=== PATIENT | female | born 1965 | race Caucasian/White ===

== ENCOUNTER 2016-11-20 10:50 | Day surgery (SDC) | payer OTHER ==
[~2016-11-20] VITALS: Ht 160 cm; Wt 78.7 kg
[~2016-11-20 10:50] MED LIST: ACHYD1T PO; ASPI325T32 PO; ATOR80TA76 PO; CLOP75TA28 PO; DAPA5TAB PO; HYDR-34 PO; HYDROCODONE; HYOS0.1216 PO; INSU100V5 SQ; METO-333 PO; NITR100C3 PO; PANT40TA2 PO; PHEN100T26 PO; SAXA2.5T PO; TRAM-21 PO
[2016-11-20] MEDS ORDERED: ASPIRIN 81 MG CHEW (CHILDREN'S ASA) PO ONE (11:00)
[2016-11-20] MEDS ORDERED: RX-NITROGLYCERIN 0.4 MG TAB BTL 25'S SL ONE (11:00)
--- NOTE | 2016-11-20 11:02 | ED Chest Pain ---
General Chief Complaint: Chest Pain Stated Complaint: CHEST TIGHTNESS/BACK PAIN Source: patient Exam Limitations: no limitations History of Present Illness Time seen by provider: 10:59 Initial Comments To ER with reports of central chest tightness that radiates through to her back. She does have associated nausea and pain with breathing. She is a former smoker but quit after a 20+ pack-year history in March 2016. She presented here with similar symptoms on October 182015 and diagnosed with N STEMI. Cardiac catheterization by Dr. Ibarra showed totally occluded mid right coronary artery which was treated with drug-eluting stent. Her pain has been present since 730 this morning. She was already awake and at work at that time. 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 She is employed at [employer]. Timing/Duration: 4-6 hours Severity/Quality: moderate, tightness Location: central, back Radiation: no radiation Activities at Onset: none ASA po SAP BI ARCHITECT: No NTG SL SAP BI ARCHITECT: No Associated Symptoms: nausea/vomiting Allergies and Home Medications Allergies Coded Allergies: codeine (Verified Allergy, Unknown, 12/19/07) Home Medications Aspirin 325 Mg Tablet. #30 325 MG PO DAILY Prescribed by: KELSEY BLANCO on 10/20/16 1404 Atorvastatin Calcium 80 Mg Tablet #30 80 MG PO HS Prescribed by: KELSEY BLANCO on 10/20/16 1404 Clopidogrel Bisulfate 75 Mg Tablet #30 75 MG PO DAILY Prescribed by: KELSEY BLANCO on 10/20/16 1404 Insulin Determir 1,000 Units/10 Ml Soln #5 25 UNIT SQ DAILY@2100 Prescribed by: KELSEY BLANCO on 10/20/16 1404 Metoprolol Tartrate 25 Mg Tablet #60 25 MG PO BID Prescribed by: KELSEY BLANCO on 10/20/16 1404 Review of Systems Constitutional: see HPI EENTM: No Symptoms Reported Respiratory: See HPIDenies Cough, Denies Orthopnea, Other (pleurodynia) Cardiovascular: See HPI Chest PainDenies Edema, Denies Irregular Heart Rate, Denies Palpitations, Denies Syncope Gastrointestinal: No Symptoms Reported Genitourinary: No Symptoms Reported Musculoskeletal: no symptoms reported Skin: no symptoms reported Psychiatric/Neurological: No Symptoms Reported Endocrine: No Symptoms Reported Hematologic/Lymphatic: No Symptoms Reported Past Bksagwa-Bcgpek-Qcpqby Hx Patient Social History Type Used: Cigarettes Recent Hopitalizations: Yes (HYSTERECTOMY 1996, BREAST SURG, TONSILECTOMY) Immunizations Up To Date Tetanus Booster (TDap): Less than 5yrs Date of Influenza Vaccine: Jul 21, 2012 Seasonal Allergies Seasonal Allergies: Yes Surgeries HX Surgeries: Yes (right plugged milk duct debridement) Respiratory Hx Respiratory Disorders: No Cardiovascular Hx Cardiac Disorders: No Neurological Hx Neurological Disorders: No Reproductive System Hx Reproductive Disorders: No Sexually Transmitted Disease: No Genitourinary Hx Genitourinary Disorders: No Gastrointestinal Hx Gastrointestinal Disorders: Yes (4 YEARS AGO SURGERY "TO MAKE IT SO THAT I CAN'T VOMIT") Musculoskeletal Hx Musculoskeletal Disorders: No Endocrine Hx Endocrine Disorders: Yes Endocrine Disorders: Diabetes, Insulin dep HEENT HX ENT Disorders: No Psychosocial Hx Psychiatric Problems: No Integumentary HX Skin/Integumentary Disorder: No Blood Transfusions Hx Blood Disorders: No Family Medical History Family Medial History: Hypertension 19 FATHER Physical Exam Vital Signs Vital Sign - Last 12Hours 11/20/16 11:34 Temp 98.2 Capillary Refill : General Appearance: No Apparent Distress WD/WN Anxious HEENT: PERRL/EOMI TMs Normal Neck: Full Range of Motion Normal Inspection Respiratory: Chest Non Tender Lungs Clear No Accessory Muscle Use Cardiovascular: Regular Rate, Rhythm Normal Peripheral Pulses Gastrointestinal: Normal Bowel Sounds Non Tender Soft Extremity: Normal Capillary Refill Neurologic/Psychiatric: Alert Oriented x3 No Motor/Sensory Deficits Skin: Normal Color Warm/Dry Progress/Results/Core Measures Results/Orders Lab Results Laboratory Tests Test 11/20/16 11:10 Range/Units Activated Partial Thromboplast Time 34 24-35 SEC Alanine Aminotransferase (ALT/SGPT) 33 0-55 U/L Albumin 4.0 3.2-4.5 G/DL Alkaline Phosphatase 130 40-136 U/L Anion Gap 10 5-14 MMOL/L Aspartate Amino Transf (AST/SGOT) 23 5-34 U/L BUN/Creatinine Ratio 16 Basophils # (Auto) 0.0 0.0-0.1 10^3/uL Basophils (%) (Auto) 0 0-10 % Blood Urea Nitrogen 13 7-18 MG/DL Calcium Level 8.7 8.5-10.1 MG/DL Carbon Dioxide Level 23 21-32 MMOL/L Chloride Level 104 98-107 MMOL/L Creatinine 0.80 0.60-1.30 MG/DL Eosinophils # (Auto) 0.2 0.0-0.3 10^3/uL Eosinophils (%) (Auto) 2 0-10 % Estimat Glomerular Filtration Rate > 60 Glucose Level 383 H 70-105 MG/DL Hematocrit 43 35-52 % Hemoglobin 14.6 11.5-16.0 G/DL INR Comment 1.0 0.8-1.4 Lymphocytes # (Auto) 2.6 1.0-4.0 X 10^3 Lymphocytes (%) (Auto) 24 12-44 % Magnesium Level 1.8 1.8-2.4 MG/DL Mean Corpuscular Hemoglobin 32 25-34 PG Mean Corpuscular Hemoglobin Concent 34 32-36 G/DL Mean Corpuscular Volume 95 80-99 FL Mean Platelet Volume 11.2 H 7.4-10.4 FL Monocytes # (Auto) 0.5 0.0-1.0 X 10^3 Monocytes (%) (Auto) 4 0-12 % Myoglobin 22.6 10.0-92.0 NG/ML Neutrophils # (Auto) 7.7 1.8-7.8 X 10^3 Neutrophils (%) (Auto) 70 42-75 % Platelet Count 262 130-400 10^3/uL Potassium Level 4.2 3.6-5.0 MMOL/L Prothrombin Time 13.3 12.2-14.7 SEC Red Blood Count 4.55 4.35-5.85 10^6/uL Red Cell Distribution Width 13.1 10.0-14.5 % Sodium Level 137 135-145 MMOL/L Total Bilirubin 0.5 0.1-1.0 MG/DL Total Protein 6.8 6.4-8.2 G/DL Troponin I < 0.30 <0.30 NG/ML White Blood Count 10.9 4.3-11.0 10^3/uL My Orders Orders-MAI WATSON LAUNDRY RO[employer] ATTENDANT Cbc With Automated Diff (11/20/16 10:54) Magnesium (11/20/16 10:54) Chest 1 View, Ap/Pa Only (11/20/16 10:54) Ekg Tracing (11/20/16 10:54) Cardiac Profile 1 (11/20/16 10:54) Comprehensive Metabolic Panel (11/20/16 10:54) Myoglobin Serum (11/20/16 10:54) Protime With Inr (11/20/16 10:54) Partial Thromboplastin Time (11/20/16 10:54) O2 (11/20/16 10:54) Monitor-Rhythm Ecg Trace Only (11/20/16 10:54) Lipid Panel (11/21/16 06:00) Aspirin Chewable Tablet (Baby Aspirin Ch (11/20/16 11:00) Rx-Nitroglycerin Sl Tabs (Rx-Nitrostat S (11/20/16 11:00) Saline Lock/Iv-Start (11/20/16 10:54) Ticagrelor Tablet (Brilinta Tablet) (11/20/16 12:00) Insulin (Regular) Human (Humulin R (Per (11/20/16 12:00) Medications Given in ED Current Medications Medications Dose Ordered Sig/Ella Route Start Time Stop Time Status Last Admin Dose Admin Aspirin 324 mg ONCE ONCE PO 11/20/16 11:00 11/20/16 11:01 DC 11/20/16 11:34 324 MG Nitroglycerin 0.4 mg UD ONCE SL 11/20/16 11:00 11/20/16 11:01 DC 11/20/16 11:35 0.4 MG Vital Signs/I&O Vital Sign - Last 12Hours 11/20/16 11:34 Temp 98.2 Diagnostic Imaging Diagonstic Imaging: Xray Comments NAME: BARBARA CHOUDHARY [facility] REC#: [id number] PT STATUS: REG ER : 1965 PHYSICIAN: MAI WATSON APRN ADMIT DATE: 11/20/16/ER Draft Date of Exam:11/20/16 CHEST 1 VIEW, AP/PA ONLY INDICATION: Chest pain. EXAMINATION: Portable chest at 11:28 AM. FINDINGS: The heart size and pulmonary vascularity are normal. The lungs are clear. There are no effusions or pneumothoraces. IMPRESSION: Negative chest. Dictated on workstation # [id number] Dict: 11/20/16 1134 Trans: 11/20/16 1146 [id number] Interpreted by: LAWRENCE CRESPO Electronically signed by: Departure Communication Time/Spoke to Admitting Phy: 11:[address] Hale agrees to admit with cardiology consult Time/Spoke to Consulting Physi: 11:56 Communication/Consulting Dr. Ibarra agrees to consult. Progress Notes 1144-Chest pain improved from a 7 out of 10-3 out of 10 after 1 sublingual nitroglycerin. Given that the tightness was still persistently second sublingual nitroglycerin glycerin was given. Blood pressure remains adequate. Troponin still not back. I did discuss with Dr. Ibarra recommends admission he will consult. Impression Impression: Primary Impression: Chest pain Qualified Code: R07.9 - Chest pain, unspecified Disposition: ADMITTED INPATIENT Condition: Stable Decision to Admit Reason: Admit from ER (General) Decision to Admit/Date: Nov 20, 2016 Time/Decision to Admit Time: 11:56 Departure-Patient Inst. Referrals: AMADO HALE DO (PCP/Family) Primary Care Physician MAI WATSON APRN Nov 20, 2016 11:02
[2016-11-20 11:18] LABS: BASOPHILS % (AUTO) 0 % (0-10); EOSINOPHILS # (AUTO) 0.2 10^3/uL (0.0-0.3); EOSINOPHILS % (AUTO) 2 % (0-10); LYMPHOCYTES # (AUTO) 2.6 X 10^3 (1.0-4.0); LYMPHOCYTES % (AUTO) 24 % (12-44); MEAN CORPUSCULAR HEMOGLOBIN 32 PG (25-34); MEAN CORPUSCULAR HGB CONC 34 G/DL (32-36); MEAN CORPUSCULAR VOLUME 95 FL (80-99); MEAN PLATELET VOLUME 11.2 FL (7.4-10.4); MONOCYTES # (AUTO) 0.5 X 10^3 (0.0-1.0); MONOCYTES % (AUTO) 4 % (0-12); NEUTROPHILS # (AUTO) 7.7 X 10^3 (1.8-7.8); NEUTROPHILS % (AUTO) 70 % (42-75); PLATELET COUNT 262 10^3/uL (130-400); RED BLOOD COUNT 4.55 10^6/uL (4.35-5.85); RED CELL DISTRIBUTION WIDTH 13.1 % (10.0-14.5); WHITE BLOOD COUNT 10.9 10^3/uL (4.3-11.0)
[2016-11-20 11:36] LABS: PROTHROMBIN TIME PATIENT 13.3 SEC (12.2-14.7)
[2016-11-20 11:45] LABS: ALANINE AMINOTRANSFERASE 33 U/L (0-55); ANION GAP 10 MMOL/L (5-14); ASPARTATE AMINO TRANSFERASE 23 U/L (5-34); BILIRUBIN,TOTAL 0.5 MG/DL (0.1-1.0); BLOOD UREA NITROGEN 13 MG/DL (7-18); BUN/CREATININE RATIO 16; CALCIUM 8.7 MG/DL (8.5-10.1); CARBON DIOXIDE 23 MMOL/L (21-32); CHLORIDE 104 MMOL/L (98-107); GFR ESTIMATED > 60; GLUCOSE 383 MG/DL (70-105); MAGNESIUM 1.8 MG/DL (1.8-2.4); POTASSIUM 4.2 MMOL/L (3.6-5.0); SODIUM 137 MMOL/L (135-145); TOTAL PROTEIN 6.8 G/DL (6.4-8.2)
--- NOTE | 2016-11-20 11:47 | Diagnostic Imaging Report ---
INDICATION: Chest pain. EXAMINATION: Portable chest at 11:28 AM. FINDINGS: The heart size and pulmonary vascularity are normal. The lungs are clear. There are no effusions or pneumothoraces. IMPRESSION: Negative chest. Dictated by: Dictated on workstation # [id number]
[2016-11-20 11:54] LABS: MYOGLOBIN SERUM 22.6 NG/ML (10.0-92.0)
[2016-11-20] MEDS ORDERED: TICAGRELOR 90 MG TABLET (BRILINTA) PO ONE (12:00)
[2016-11-20] MEDS ORDERED: inSUlin (REGULAR) HUMAN 1 UNIT/0.01 ML (CHARGE PER UNIT) SC ONE (12:00)
[2016-11-20] MEDS ORDERED: NITROGLYCERIN SUBLINGUAL 0.4 MG TAB (NITROSTAT) SL PRN (14:15)
[2016-11-20] MEDS ORDERED: CATHETER FLUSH 10 ML SYR IV PRN (14:15)
--- NOTE | 2016-11-20 14:40 | Consultation-Cardiology ---
HPI-Cardiology Cardiology Consultation: Date of Consultation 11/20/16 Date of Admission Attending Physician Carmelina Hale DO Admitting Physician Carmelina Hale DO Consulting Physician Tan IBARRA MD HPI: Chief Complaint: chest pain this is a 51-year-old lady with history of active smoking and diabetes. She quit smoking in April 2016. She presented and of September last year with non- STEMI and was found to have occluded mid RCA treated successfully with a drug- eluting stent. She was discharged on aspirin and Plavix. She presents again today with complain of chest tightness since 730 in the morning. Initial chest tightness was 7/10 with relief with nitroglycerin. She also complained of radiation to the side of the chest. She denied having any heartburn. She says it's similar to her previous symptoms during the non-STEMI but not as severe. Patient denies any shortness of breath, palpitation, syncope or near syncope. Patient was compliant with Plavix. Review of Systems-Cardiology Review of Systems Constitutional: No As described under HPI, No no symptoms reported, No chills, No fever, No lightheadedness, No malaise, No tiredness, No weight loss, No weight gain, No other Eyes: No As described under HPI, No no symptoms reported, No blindness, No blurred vision, No contact lenses, No drainage, No decreased acuity, No foreign body sensation, No glasses, No inflammation, No pain, No photophobia, No previous injury, No shadows, No tunnel vision, No other, No vision change Ears/Nose/Throat: No As described under HPI, No no symptoms reported, No chronic hearing loss, No epistaxis, No ear discharge, No ear pain, No loose teeth, No mouth pain, No mouth swelling, No nasal drainage, No nose pain, No recent hearing loss, No throat pain, No throat swelling, No ulcerations, No other Respiratory: No no symptoms reported, No As described under HPI, No cough, No orthopnea, No shortness of breath, No SOB with excertion, No SOB at rest, No stridor, No wheezing, No other Cardiovascular: No no symptoms reported, No As described under HPI, chest painNo edema, No irregular heart rate, No lightheadedness, No palpitations, No syncope, No other Gastrointestinal: No no symptoms reported, No As described under HPI, No abdomen distended, No abdominal pain, No blood streaked bowels, No constipation , No diarrhea, No difficulty swallowing, No nausea, No poor appetite, No poor fluid intake, No rectal bleeding, No vomiting, No other, No nausea/vomiting/ diarrhea, No stool coloration changes Genitourinary: No no symptoms reported, No As described under HPI, No burning, No dysuria, No discharge, No frequency, No flank pain, No hematuria, No incontinence, No pain, No urgency, No other, No urine frequency changes, No urine coloration changes Musculoskeletal: No no symptoms reported, No As describe under HPI, No back pain, No gout, No joint pain, No joint swelling, No muscle pain, No muscle stiffness, No neck pain, No other Skin: No no symptoms reported, No As described under HPI, No change in color, No change in hair/nails, No dryness, No lesions, No lumps, No rash, No other, No skin related problems, No ulcerations, No rash on exposed areas, No ulcerations on exposed areas Psychiatric/Neurological: No As described under HPI, No anxiety, No depression , No emotional problems, No focal weakness, No headache, No no symptoms reported , No numbness, No other, No pre-existing deficit, No seizure, No syncope, No tingling, No tremors, No weakness BHM-Lvedmh-Njdjhy Hx Patient Social History Alcohol Use: Denies Use Recreational Drug Use: No Smoking Status: Former Smoker Type Used: Cigarettes Recent Foreign Travel: No Recent Infectious Disease Expo: No Hospitalization with Isolation: Denies Physical Abuse Screen: No Sexual Abuse: No Immunizations Up To Date Tetanus Booster (TDap): Less than 5yrs Date of Influenza Vaccine: Oct 18, 2016 Past Medical History PMH As described under Assessment. Family Medical History Family History: Hypertension 19 FATHER Allergies and Home Medications Allergies Coded Allergies: codeine (Verified Allergy, Unknown, 12/19/07) Home Medications Aspirin 325 Mg Tablet. #30 325 MG PO DAILY Prescribed by: KELSEY BLANCO on 10/20/16 1404 Atorvastatin Calcium 80 Mg Tablet #30 80 MG PO HS Prescribed by: KELSEY BLANCO on 10/20/16 1404 Clopidogrel Bisulfate 75 Mg Tablet #30 75 MG PO DAILY Prescribed by: KELSEY BLANCO on 10/20/16 1404 Insulin Determir 1,000 Units/10 Ml Soln #5 25 UNIT SQ DAILY@2100 Prescribed by: KELSEY BLANCO on 10/20/16 140 Metoprolol Tartrate 25 Mg Tablet #60 25 MG PO BID Prescribed by: KELSEY BLANCO on 10/20/16 1404 Physical Exam-Cardiology Physical Exam Vital Signs/I&O Vital Sign - Last 12Hours 11/20/16 11/20/16 11/20/16 11/20/16 10:50 11:34 12:36 13:28 Temp 97.5 98.2 98.2 Pulse 90 72 Resp 16 B/P O2 Delivery Room Air Capillary Refill : Less Than 3 Seconds Constitutional: No appears stated age, No AAO x 3, No apparent distress, No PERRL, No well-developed, No well-nourished, No other HEENT: No PERRL, No normal ENT inspection, No TMs normal, No pharynx normal, No scleral icterus (R), No scleral icterus (L), No pale conjunctivae (R), No pale conjunctivae (L), No photophobia, No TM abnormal (R), No TM abnormal (L), No pharyngeal erythema, No tonsillar exudate, No other, No discharge, No EOMI, No hearing is well preserved, No hard of hearing, No oral hygience is good, No ulceration, No xanthelasmas are seen Neck: No non-tender, No full range of motion, No supple, No normal inspection, No carotid bruit, No limited range of motion, No lymphadenopathy (R), No lymphadenopathy (L), No tender lateral, No tender midline, No thyromegaly, No other, No carotid pulses are 2 + bilaterally, No with good upstrokes Respiratory: No accessory muscle use, No respiratory distress, No chest tender , No chest expansion is symmetric, No chest is bilaterally symmetric, No lungs clear to percussion, No lungs clear to auscultation, No crackles, No rhonchi, No rales, No stridor, No wheezing, No pleural rub, No other Cardiovascular: No regular rate-rhythm, No irregularly irregular, No extra beats, No parasternal heave is noted, No JVD, No edema, No bradycardia, No tachycardia, No point of maximal impulse, No cardiac thrills are palpable, No S1 and S2, No gallop/S3, No gallop/S4, No diastolic murmur, No systolic murmur, No friction rub, No click, No other Gastrointestinal: No tender, No soft, No round, No distended, No pulsatile mass , No organomegaly, No guarding, No rebound, No tenderness, No hernia, No mass, No audible bowel sounds, No abnormal bowel sounds, No abdominal bruits, No spleenomegaly, No other Rectal: deferred Extremities: No normal range of motion, No non-tender, No normal inspection, No pedal edema, No calf tenderness, No normal capillary refill, No pelvis stable , No calf tenderness, No inflammation, No pedal edema, No slow capillary refill , No swelling, No other, No abrasion, No clubbing, No cyanosis, No ecchymosis, No laceration, No no lower extremity edema bilateral, No significant edema, No tenderness, No wound Neurologic/Psychiatric: No spring tacker II-XII nml as tested, No no motor/sensory deficits, No alert, No normal mood/affect, No oriented x 3, No abnormal cerebellar tests, No abnormal spring tacker II-XII, No abnormal gait, No aphasia, No EOM palsy, No facial droop, No motor weakness, No sensory deficit, No depressed affect, No disoriented x 3, No other, No grossly intact, No power is 5/5 both on sides Skin: No normal color, No warm/dry, No cyanosis, No cool, No diaphoresis, No damp, No ecchymosis, No jaundice, No mottled, No pallor, No rash, No tattoos/ piercings, No ulcerations, No rash on exposed areas, No ulcerations on exposed areas, No other Data Review Labs Laboratory Tests 11/20/16 11:10: Activated Partial Thromboplast Time 34, Alanine Aminotransferase (ALT/SGPT) 33, Albumin 4.0, Alkaline Phosphatase 130, Anion Gap 10, Aspartate Amino Transf (AST /SGOT) 23, BUN/Creatinine Ratio 16, Basophils # (Auto) 0.0, Basophils (%) (Auto ) 0, Blood Urea Nitrogen 13, Calcium Level 8.7, Carbon Dioxide Level 23, Chloride Level 104, Creatinine 0.80, Eosinophils # (Auto) 0.2, Eosinophils (%) ( Auto) 2, Estimat Glomerular Filtration Rate > 60, Glucose Level 383H, Hematocrit 43, Hemoglobin 14.6, INR Comment 1.0, Lymphocytes # (Auto) 2.6, Lymphocytes (%) (Auto) 24, Magnesium Level 1.8, Mean Corpuscular Hemoglobin 32, Mean Corpuscular Hemoglobin Concent 34, Mean Corpuscular Volume 95, Mean Platelet Volume 11.2H, Monocytes # (Auto) 0.5, Monocytes (%) (Auto) 4, Myoglobin 22.6, Neutrophils # (Auto) 7.7, Neutrophils (%) (Auto) 70, Platelet Count 262, Potassium Level 4.2, Prothrombin Time 13.3, Red Blood Count 4.55, Red Cell Distribution Width 13.1, Sodium Level 137, Total Bilirubin 0.5, Total Protein 6.8, Troponin I < 0.30, White Blood Count 10.9 ECG Impression ECG Initial ECG Rhythm: Normal Sinus A/P-Cardiology Assessment/Admission Diagnosis unstable angina Plan unstable angina: Non-STEMI one month ago with successful PCI to the mid RCA with drug-eluting stent. Patient was compliant with Plavix. First set of cardiac enzymes is negative. We will continue serial cardiac enzymes. EKG did not reveal any significant ST deviation. Continue aspirin. Bolus of brilinta given. Will start IV heparin. Most likely will require coronary angiography tomorrow. Continue high-dose statin as well. Thank you for your consultation. Please call me if you have any questions. Francisco Ibarra MD, FACP, FACC, FSCAI, FHRS, CCDS Interventional Cardiology Cardiac Electrophysiology Vascular Medicine and Endovascular Interventions Clinical Quality Measures AMI/AHF: ASA po Prior to arrival: No DVT/VTE Risk/Contraindication: Risk Factor Score Per Nursin RFS Level Per Nursing on Admit: 1=Low/No VTE PPX Tan IBARRA MD Nov 20, 2016 2:40 pm
[2016-11-20] MEDS ORDERED: PANT40TA3 PO (14:45)
[2016-11-20] MEDS ORDERED: CLOP75TA69 PO (14:48)
[2016-11-20] MEDS ORDERED: METO-270 PO (14:48)
[2016-11-20] MEDS ORDERED: INSU100I29 SC (14:48)
[2016-11-20] MEDS ORDERED: ATOR80TA64 PO (14:48)
[2016-11-20] MEDS ORDERED: ASPI-983 PO (14:48)
[2016-11-20 16:00] VITALS: BP 102/71
[2016-11-20] MEDS: morphine INJ 4 MG/ML 1 ML (VIAL/SYRINGE) IVP PRN ×2 (16:52→21:59)
[2016-11-20] MEDS: ENOXAPARIN 80 MG/0.8 ML (LOVENOX) SYR SC SCH (16:52)
[2016-11-20 17:32] LABS: TROPONIN I < 0.30 NG/ML (<0.30)
--- NOTE | 2016-11-20 19:30 | History & Physicial ---
History of Present Illness History of Present Illness Reason for visit/HPI This is a 51 year old female who had a non-STEMI in September of 2016 requiring a drug-eluting stent to her RCA. She was at work today when she had the onset of substernal chest pressure which she described as feeling like something squeezing her around the chest and constricting her breathing. The pain did radiate through to her shoulder blades. Her EKG showed no acute changes in the emergency room and her cardiac enzymes were negative. However, her chest pain was relieved with nitro. It was decided to admit her for further cardiac evaluation and treatment. Date of Admission Nov 20, 2016 at 12:04 I consulted on this patient on 11/20/16 19:25 Attending Physician Carmelina Hale DO Admitting Physician Carmelina Hale DO Consult Allergies and Home Medications Allergies Coded Allergies: codeine (Verified Allergy, Unknown, 12/19/07) Home Medications Aspirin 81 Mg Tablet. 81 MG PO HS (Reported) Atorvastatin Calcium 80 Mg Tablet 80 MG PO HS (Reported) Clopidogrel Bisulfate 75 Mg Tablet 75 MG PO HS (Reported) Insulin Detemir 100 Unit/1 Ml Insuln.pen 25 UNITS SC HS (Reported) Metoprolol Succinate 25 Mg Tab.er.24h 25 MG PO HS (Reported) Pantoprazole Sodium 40 Mg Tablet. 40 MG PO HS (Reported) Past Lljvzsi-Wvvsev-Uskvbe Hx Patient Social History Alcohol Use: Denies Use Recreational Drug Use: No Smoking Status: Former Smoker Type Used: Cigarettes Physical Abuse Screen: No Sexual Abuse: No Recent Foreign Travel: No Contact w/other who traveled: No Recent Hopitalizations: Yes (HYSTERECTOMY 1996, BREAST SURG, TONSILECTOMY) Recent Infectious Disease Expo: No Immunizations Up To Date Tetanus Booster (TDap): Less than 5yrs Date of Influenza Vaccine: Oct 18, 2016 Seasonal Allergies Seasonal Allergies: Yes Surgeries HX Surgeries: Yes (right plugged milk duct debridement) Respiratory Hx Respiratory Disorders: No Cardiovascular Hx Cardiovascular Disorders: No Neurological Hx Neurological Disorders: No Reproductive System Hx Reproductive Disorders: No Sexually Transmitted Disease: No HIV/AIDS: No UPPER TIER Hx: Hysterectomy Genitourinary Hx Genitourinary Disorders: No Gastrointestinal Hx Gastrointestinal Disorders: Yes (4 YEARS AGO SURGERY "TO MAKE IT SO THAT I CAN'T VOMIT") Musculoskeletal Hx Musculoskeletal Disorders: No Endocrine Hx Endocrine Disorders: Yes Endocrine Disorders: Diabetes, Insulin dep HEENT HX ENT Disorders: No Psychosocial Hx Psychiatric Problems: No Integumentary HX Skin/Integumentary Disorder: No Blood Transfusions Hx Blood Disorders: No Family Medical History Family Hx: Hypertension 19 FATHER Constitutional: weakness EENTM: No blurred vision, No dental problems, No double vision, No ear discharge, No ear pain, No epistaxis, No eye pain, No hearing loss, No hoarseness, No mouth pain, No mouth swelling, No no symptoms reported, No nose congestion, No nose pain, No other, No see HPI, No tearing, No throat pain, No throat swelling, No vision loss Respiratory: short of breath (breathing felt restricted) Cardiovascular: chest pain Gastrointestinal: No RUQ, No LUQ, No RLQ, No LLQ, No no symptoms reported, No see HPI, No abdominal pain, No constipation, No diarrhea, No dysphagia, No hematemesis, No heartburn, No jaundice, No loss of appetite, No melena, No nausea, No vomiting, No other Genitourinary: No no symptoms reported, No see HPI, No decreased output, No discharge, No dysuria, No frequency, No hematuria, No hesitancy, No incontinence , No nocturia, No pain, No other Musculoskeletal: back pain (radiating between shoulder blades) Skin: No no symptoms reported, No see HPI, No change in color, No change in hair/nails, No dryness, No hx of skin cancer, No lesions, No lumps, No pruritus , No rash, No other Psychiatric/Neurological: Denies No Symptoms Reported, Denies See HPI, Denies Anxiety, Denies Depressed, Denies Emotional Problems, Denies Headache, Denies Numbness, Denies Paresthesia, Denies Pre-Existing Deficit, Denies Seizure, Denies Tingling, Denies Tremors, Denies Weakness, Denies Other Physical Exam Vital Signs Vital Sign - Last 12Hours 11/20/16 11/20/16 11/20/16 10:50 13:00 16:00 Temp 97.5 Pulse 90 Resp 16 B/P 102/71 Pulse Ox 98 O2 Delivery Room Air Capillary Refill : Less Than 3 Seconds General Appearance: No Apparent Distress HEENT: Normal ENT Inspection Neck: Non Tender Supple Respiratory: Lungs Clear Cardiovascular: Regular Rate, Rhythm Gallop/S3 Gastrointestinal: Normal Bowel Sounds Soft Tenderness (epigastric) Rectal: Deferred Back: No CVA Tenderness Extremity: Non Tender No Calf Tenderness No Pedal Edema Neurologic/Psychiatric: Alert Oriented x3 Skin: Normal Color Lymphatic: No Adenopathy Comments Laboratory Tests 11/20/16 11:10: Activated Partial Thromboplast Time 34, Alanine Aminotransferase (ALT/SGPT) 33, Albumin 4.0, Alkaline Phosphatase 130, Anion Gap 10, Aspartate Amino Transf (AST /SGOT) 23, BUN/Creatinine Ratio 16, Basophils # (Auto) 0.0, Basophils (%) (Auto ) 0, Blood Urea Nitrogen 13, Calcium Level 8.7, Carbon Dioxide Level 23, Chloride Level 104, Creatinine 0.80, Eosinophils # (Auto) 0.2, Eosinophils (%) ( Auto) 2, Estimat Glomerular Filtration Rate > 60, Glucose Level 383H, Hematocrit 43, Hemoglobin 14.6, INR Comment 1.0, Lymphocytes # (Auto) 2.6, Lymphocytes (%) (Auto) 24, Magnesium Level 1.8, Mean Corpuscular Hemoglobin 32, Mean Corpuscular Hemoglobin Concent 34, Mean Corpuscular Volume 95, Mean Platelet Volume 11.2H, Monocytes # (Auto) 0.5, Monocytes (%) (Auto) 4, Myoglobin 22.6, Neutrophils # (Auto) 7.7, Neutrophils (%) (Auto) 70, Platelet Count 262, Potassium Level 4.2, Prothrombin Time 13.3, Red Blood Count 4.55, Red Cell Distribution Width 13.1, Sodium Level 137, Total Bilirubin 0.5, Total Protein 6.8, Troponin I < 0.30, White Blood Count 10.9 11/20/16 17:01: Troponin I < 0.30 11/20/16 17:30: Glucometer 141H Assessment/Plan Assessment and Plan 1. Chest Pain in patient with recent non-STEMI--concerning for Angina--admit to cardiac stepdown with telemetry, repeat cardiac enzymes, consult cardiology 2. Diabetes mellitus--insulin requiring--SSI Clinical Quality Measures AMI/AHF: ASA po Prior to arrival: No DVT/VTE Risk/Contraindication: Risk Factor Score Per Nursin RFS Level Per Nursing on Admit: 1=Low/No VTE PPX CARMELINA HALE DO Nov 20, 2016 19:30
[2016-11-20 20:00] VITALS: BP 105/72
[2016-11-20] MEDS ORDERED: inSUlin ASPART (NovoLOG) 1 UNIT/0.01 ML (CHARGE PER UNIT) SC SCH (21:00)
[2016-11-20] MEDS ORDERED: ATORVASTATIN 40 MG (LIPITOR) TABLET PO SCH (21:00)
[2016-11-20] MEDS: TICAGRELOR 90 MG TABLET (BRILINTA) PO SCH (21:26)
[2016-11-20] MEDS: FAMOTIDINE 20MG/2ML IV (PEPCID) IVP SCH (21:27)
[2016-11-20] MEDS: inSUlin (REGULAR) HUMAN 1 UNIT/0.01 ML (CHARGE PER UNIT) SC SCH (21:52)
[2016-11-20] MEDS: CATHETER FLUSH 10 ML SYR IV SCH (21:59)
[2016-11-21] VITALS (11 sets, daily range): BP systolic 82–112; BP diastolic 48–75
[2016-11-21] MEDS: ENOXAPARIN 80 MG/0.8 ML (LOVENOX) SYR SC SCH ×2 (02:52→14:19)
[2016-11-21 04:44] LABS: CHOLESTEROL 104 MG/DL (< 200); DIRECT LDL 62 MG/DL (1-129); TRIGLYCERIDES 145 MG/DL (<150); VLDL CHOLESTEROL 29 MG/DL (5-40)
[2016-11-21] MEDS: inSUlin (REGULAR) HUMAN 1 UNIT/0.01 ML (CHARGE PER UNIT) SC SCH ×4 (06:22→20:59)
[2016-11-21] MEDS: CATHETER FLUSH 10 ML SYR IV SCH ×3 (06:23→20:03)
[2016-11-21] MEDS ORDERED: PATIENT MAY USE OWN MEDS, ALL MC SCH (07:45)
[2016-11-21] MEDS: FAMOTIDINE 20MG/2ML IV (PEPCID) IVP SCH ×2 (08:28→20:02)
[2016-11-21] MEDS: ASPIRIN E.C. 81 MG (ECOTRIN) TAB PO SCH (08:29)
[2016-11-21] MEDS: TICAGRELOR 90 MG TABLET (BRILINTA) PO SCH ×2 (08:29→20:02)
--- NOTE | 2016-11-21 09:49 | Progress Note (SOAP) ---
Subjective Subjective/Events-last exam Fwup chest pain, history of CAD with recent non-STEMI, diabetes mellitus-- insulin requiring. No CP since last night about 10pm. Objective Exam Vital Signs Date Time Temp Pulse Resp B/P Pulse Ox O2 Delivery O2 Flow Rate FiO2 11/21/16 08:27 98.8 72 16 100/66 93 Room Air 11/21/16 07:00 65 11/21/16 04:00 96.9 72 18 108/74 95 Room Air 11/21/16 04:00 95 Room Air 11/21/16 01:00 78 11/21/16 00:00 94 Room Air 11/21/16 00:00 96.9 72 16 102/67 94 Room Air 11/20/16 21:00 94 Room Air 11/20/16 20:00 97.0 83 16 105/72 94 Room Air 11/20/16 20:00 94 Room Air 11/20/16 19:00 83 11/20/16 16:00 98.3 71 18 102/71 94 Room Air 11/20/16 16:00 94 Room Air 11/20/16 13:28 72 11/20/16 13:00 97.5 78 16 98 11/20/16 12:36 98.2 11/20/16 11:34 98.2 11/20/16 10:50 97.5 90 16 Room Air I & O 11/21/16 07:00 Intake Total 520 ml Output Total 300 ml Balance 220 ml Capillary Refill : Less Than 3 Seconds General Appearance: No Apparent Distress Neck: Supple Respiratory: Lungs Clear Cardiovascular: Regular Rate, Rhythm Gallop/S3 Gastrointestinal: normal bowel sounds soft tenderness (epigastric) Extremity: Non Tender No Calf Tenderness No Pedal Edema Neurologic/Psychiatric: Alert Oriented x3 Results Lab Laboratory Tests 11/20/16 11:10: Activated Partial Thromboplast Time 34, Alanine Aminotransferase (ALT/SGPT) 33, Albumin 4.0, Alkaline Phosphatase 130, Anion Gap 10, Aspartate Amino Transf (AST /SGOT) 23, BUN/Creatinine Ratio 16, Basophils # (Auto) 0.0, Basophils (%) (Auto ) 0, Blood Urea Nitrogen 13, Calcium Level 8.7, Carbon Dioxide Level 23, Chloride Level 104, Creatinine 0.80, Eosinophils # (Auto) 0.2, Eosinophils (%) ( Auto) 2, Estimat Glomerular Filtration Rate > 60, Glucose Level 383H, Hematocrit 43, Hemoglobin 14.6, INR Comment 1.0, Lymphocytes # (Auto) 2.6, Lymphocytes (%) (Auto) 24, Magnesium Level 1.8, Mean Corpuscular Hemoglobin 32, Mean Corpuscular Hemoglobin Concent 34, Mean Corpuscular Volume 95, Mean Platelet Volume 11.2H, Monocytes # (Auto) 0.5, Monocytes (%) (Auto) 4, Myoglobin 22.6, Neutrophils # (Auto) 7.7, Neutrophils (%) (Auto) 70, Platelet Count 262, Potassium Level 4.2, Prothrombin Time 13.3, Red Blood Count 4.55, Red Cell Distribution Width 13.1, Sodium Level 137, Total Bilirubin 0.5, Total Protein 6.8, Troponin I < 0.30, White Blood Count 10.9 11/20/16 17:01: Troponin I < 0.30 11/20/16 17:30: Glucometer 141H 11/20/16 21:39: Glucometer 239H 11/21/16 03:55: Cholesterol Level 104, HDL Cholesterol 25L, LDL Cholesterol Direct 62, Triglycerides Level 145, Troponin I < 0.30, VLDL Cholesterol 29 11/21/16 06:16: Glucometer 231H Assessment/Plan Assessment/Plan Assess & Plan/Chief Complaint 1. Chest Pain in patient with recent non-STEMI with stent placement--await cardiac recommendations 2. Diabetes mellitus--insulin requiring Diagnosis/Problems: Clinical Quality Measures AMI/AHF: ASA po Prior to arrival: No DVT/VTE Risk/Contraindication: Risk Factor Score Per Nursin RFS Level Per Nursing on Admit: 1=Low/No VTE PPX AMADO DAVIS DO Nov 21, 2016 9:49 am
[2016-11-21] MEDS ORDERED: LIDOCAINE 1% INJ 20 ML (XYLOCAINE) VIAL ONE (10:18)
[2016-11-21] MEDS ORDERED: HEParin (CATH LAB) 2,000 ML IV ONE (10:18)
[2016-11-21] MEDS ORDERED: NS IV 1000 ML 1,000 ML ONE (10:18)
--- NOTE | 2016-11-21 10:57 | Cardiology Progress Note ---
Cardiology SOAP Progress Note Subjective: No further chest pain Objective: I&O/Vital Signs Vital Sign - Last 12Hours 11/21/16 11/21/16 11/21/16 11/21/16 00:00 00:00 01:00 04:00 Temp 96.9 Pulse 72 78 Resp 16 B/P 102/67 Pulse Ox 94 94 95 O2 Delivery Room Air Room Air Room Air 11/21/16 11/21/16 11/21/16 04:00 07:00 08:27 Temp 96.9 98.8 Pulse 72 65 72 Resp 18 16 B/P 108/74 100/66 Pulse Ox 95 93 O2 Delivery Room Air Room Air Intake and Output 11/21/16 00:00 Intake Total 370 ml Output Total 300 ml Balance 70 ml Weight (Pounds): 173 Weight (Ounces): 6.4 Weight (Calculated Kilograms): 78.849242 Constitutional: No appears stated age, No AAO x 3, No apparent distress, No PERRL, No well-developed, No well-nourished, No other Respiratory: No accessory muscle use, No respiratory distress, No chest tender , No chest expansion is symmetric, No chest is bilaterally symmetric, No lungs clear to percussion, No lungs clear to auscultation, No crackles, No rhonchi, No rales, No stridor, No wheezing, No pleural rub, No other Cardiovascular: No regular rate-rhythm, No irregularly irregular, No extra beats, No parasternal heave is noted, No JVD, No edema, No bradycardia, No tachycardia, No point of maximal impulse, No cardiac thrills are palpable, No S1 and S2, No gallop/S3, No gallop/S4, No diastolic murmur, No systolic murmur, No friction rub, No click, No other Gastrointestional: No tender, No soft, No round, No distended, No pulsatile mass, No organomegaly, No guarding, No rebound, No tenderness, No hernia, No mass, No audible bowel sounds, No abnormal bowel sounds, No abdominal bruits, No spleenomegaly, No other Extremities: No normal range of motion, No non-tender, No normal inspection, No pedal edema, No calf tenderness, No normal capillary refill, No pelvis stable , No calf tenderness, No inflammation, No pedal edema, No slow capillary refill , No swelling, No other, No abrasion, No clubbing, No cyanosis, No ecchymosis, No laceration, No no lower extremity edema bilateral, No significant edema, No tenderness, No wound Neurologic/Psychiatric: No furniture repair technician II-XII nml as tested, No no motor/sensory deficits, No alert, No normal mood/affect, No oriented x 3, No abnormal cerebellar tests, No abnormal furniture repair technician II-XII, No abnormal gait, No aphasia, No EOM palsy, No facial droop, No motor weakness, No sensory deficit, No depressed affect, No disoriented x 3, No other, No grossly intact, No power is 5/5 both on sides Skin: No normal color, No warm/dry, No cyanosis, No cool, No diaphoresis, No damp, No ecchymosis, No jaundice, No mottled, No pallor, No rash, No tattoos/ piercings, No ulcerations, No rash on exposed areas, No ulcerations on exposed areas, No other Results/Procedures: Labs Laboratory Tests 11/20/16 11:10: Activated Partial Thromboplast Time 34, Alanine Aminotransferase (ALT/SGPT) 33, Albumin 4.0, Alkaline Phosphatase 130, Anion Gap 10, Aspartate Amino Transf (AST /SGOT) 23, BUN/Creatinine Ratio 16, Basophils # (Auto) 0.0, Basophils (%) (Auto ) 0, Blood Urea Nitrogen 13, Calcium Level 8.7, Carbon Dioxide Level 23, Chloride Level 104, Creatinine 0.80, Eosinophils # (Auto) 0.2, Eosinophils (%) ( Auto) 2, Estimat Glomerular Filtration Rate > 60, Glucose Level 383H, Hematocrit 43, Hemoglobin 14.6, INR Comment 1.0, Lymphocytes # (Auto) 2.6, Lymphocytes (%) (Auto) 24, Magnesium Level 1.8, Mean Corpuscular Hemoglobin 32, Mean Corpuscular Hemoglobin Concent 34, Mean Corpuscular Volume 95, Mean Platelet Volume 11.2H, Monocytes # (Auto) 0.5, Monocytes (%) (Auto) 4, Myoglobin 22.6, Neutrophils # (Auto) 7.7, Neutrophils (%) (Auto) 70, Platelet Count 262, Potassium Level 4.2, Prothrombin Time 13.3, Red Blood Count 4.55, Red Cell Distribution Width 13.1, Sodium Level 137, Total Bilirubin 0.5, Total Protein 6.8, Troponin I < 0.30, White Blood Count 10.9 11/20/16 17:01: Troponin I < 0.30 11/20/16 17:30: Glucometer 141H 11/20/16 21:39: Glucometer 239H 11/21/16 03:55: Cholesterol Level 104, HDL Cholesterol 25L, LDL Cholesterol Direct 62, Triglycerides Level 145, Troponin I < 0.30, VLDL Cholesterol 29 11/21/16 06:16: Glucometer 231H A/P: Assessment/Dx: unstable angina, refractory to ntg Plan: unstable angina: Non-STEMI one month ago with successful PCI to the mid RCA with drug-eluting stent. Patient was compliant with Plavix. 3 sets of cardiac enzymes are negative. EKG did not reveal any significant ST deviation. Continue aspirin and ticagrelor. Low molecular weight heparin. Coronary angiography today. Continue high-dose statin as well. Informed consent taken for coronary angiography. All risks and complication explained in detail. Including bleeding, vascular damage, CVA, VT and even . Patient accepts all risks and complications and would like to proceed. We also discussed medical therapy and/or nuclear stress testing as well. Thank you for your consultation. Please call me if you have any questions. Francisco Ibarra MD, FACP, FACC, FSCAI, FHRS, CCDS Interventional Cardiology Cardiac Electrophysiology Vascular Medicine and Endovascular Interventions Clinical Quality Measures AMI/AHF: ASA po Prior to arrival: Tan Jefferson MD Nov 21, 2016 10:57 am
[2016-11-21] MEDS ORDERED: fentaNYL INJECTION 100 MCG/2 ML AMP ONE (17:16)
[2016-11-21] MEDS ORDERED: MIDAZOLAM 5 MG/5 ML (VERSED) VIAL ONE (17:16)
[2016-11-21] MEDS ORDERED: NITROGLYCERIN DRIP 25 MG/D5W 250 ML IV ONE (17:22)
[2016-11-21] MEDS ORDERED: VERAPAMIL 5 MG/2 ML (CALAN) VIAL IV ONE (17:22)
[2016-11-21] MEDS ORDERED: HEParin 1000 UNIT/ML (10ML VIAL) FOR BOLUS ONE (17:23)
[2016-11-21] MEDS ORDERED: NS IV 1000 ML 1,000 ML IV SCH (17:30)
[2016-11-21] MEDS ORDERED: ADENOSINE 3 MG/1 ML (ADENOSCAN) 30ML VIAL IV ONE (17:44)
--- NOTE | 2016-11-21 18:13 | Cardiac Procedure Note-CS/ASA ---
Pre-Procedure Note Pre-Op Procedure Note H&P Reviewed The H&P was reviewed, patient examined and no changes noted. Date H&P Reviewed: Nov 21, 2016 Time H&P Reviewed: 15:00 Conscious Sedation Pre-Proced Time Reviewed: 15:00 ASA Class: 2 Airway Mallampati Classification: (wichita appropriate class) I. II. III, IV Lungs Heart ASA score ASA 1: a normal healthy patient ASA 2: a patient with a mild systemic disease (mid diabetes, controlled hypertension, obesity ASA 3: a patient with a severe systemic disease that limits activity (angina , COPD, prior Myocardial infarction) ASA 4: a patient with an incapacitating disease that is a constant threat to life (CHF, renal failure) ASA 5: a moribund patient not expected to survive 24 hrs. (ruptured aneurysm) ASA 6: a declared brain patient whose organs are being harvested. For emergent operations, add the letter E after the classification Grade 1 Sedation Plan: Analgesia, Amnesia, Plan communicated to team members, Discussed options with patient/fam, Discussed risks with patient/fam Note The patient is an appropriate candidate to undergo the planned procedure, sedation, and anesthesia. The patient immediately re-assessed prior to indication. Tan MCBRIDE MD Nov 21, 2016 6:13 pm
[2016-11-21] MEDS: NS IV 1000 ML 1,000 ML IV SCH (18:14)
[2016-11-21] MEDS ORDERED: PATIENT MAY USE OWN MEDS, ALL PO SCH (18:15)
--- NOTE | 2016-11-21 18:17 | Progress Note-Post Operative ---
Post-Operative Progess Note Pre-Operative Diagnosis unstable angina Post-Operative Diagnosis patent RCA stent, ostial RCA spasm Post-Op Procedure Note Date of Procedure: Nov 21, 2016 Name of Procedure: Coronary angiography, LHC, FFR to the RCA Procedure Note/Findings Normal FFR to the ostial RCA. Patent RCA stent. Mild LCX and LAD disease. Normal LV function Anesthesia Type Local Anesthesia, conscious sedation Estimated blood loss (mL): 20 ml Packing: none Specimen(s) collected none Tan MCBRIDE MD Nov 21, 2016 6:17 pm
[2016-11-21] MEDS ORDERED: TICAGRELOR 90 MG TABLET (BRILINTA) PO SCH (21:00)
[2016-11-21] MEDS ORDERED: ATORVASTATIN 80 MG PO SCH (21:00)
[2016-11-22 04:00] VITALS: BP 90/58
[2016-11-22] MEDS: NS IV 1000 ML 1,000 ML IV SCH (04:14)
[2016-11-22] MEDS: inSUlin (REGULAR) HUMAN 1 UNIT/0.01 ML (CHARGE PER UNIT) SC SCH ×2 (05:35→11:25)
[2016-11-22] MEDS: CATHETER FLUSH 10 ML SYR IV SCH (05:35)
[2016-11-22 08:09] VITALS: BP 101/68
[2016-11-22] MEDS ORDERED: ISOSORBIDE MONONITRATE 30 MG (IMDUR) TAB PO SCH (09:00)
[2016-11-22] MEDS ORDERED: ASPIRIN E.C. 81 MG (ECOTRIN) TAB PO SCH (09:00)
[2016-11-22] MEDS: FAMOTIDINE 20MG/2ML IV (PEPCID) IVP SCH (09:32)
[2016-11-22] MEDS: ASPIRIN E.C. 81 MG (ECOTRIN) TAB PO SCH (09:33)
[2016-11-22] MEDS: TICAGRELOR 90 MG TABLET (BRILINTA) PO SCH (09:33)
[2016-11-22 11:13] VITALS: BP 94/61
[2016-11-22] MEDS ORDERED: TICA90TA PO (13:27)
[2016-11-22] MEDS ORDERED: ISOS30TA3 PO (13:27)
--- NOTE | 2016-11-22 13:28 | Discharge Inst-Post CATH ---
Discharge Inst-CATH Post Cardiac Cath D/C Inst Follow Up/Plan Dr Ibarra in a month. Dr Hale CARDIAC CATH DISCHARGE INSTRUCTIONS *Hold Metformin for 48 hours post heart cath. ACTIVITY * Go Home directly and rest. * Limit activity of the leg (or wrist if it was used) for 7 days including aerobics, swimming, jogging, bicycling, etc. * Restrict stair-climbing for 7 days if possible, if not, climb up with your non -cath leg, then bring together on the same step. * Avoid lifting, pushing, pulling or excessive movement of the affected extremity for 7 days. * Customary sexual activity may be resumed after 2 days-use caution not to use a position that strains or causes pain to the affected extremity. * No driving for 24 hours. * NO SMOKING. * Avoid straining for bowel movements for 7 days. * Gentle walking on level ground is allowed. * Returning to work will depend on the type of procedure and the results. Your doctor will discuss this with you. CALL YOUR DOCTOR FOR ANY OF THE FOLLOWING: *If bleeding from the puncture site occurs- Apply gentle pressure to site with clean cloth and call your doctor or EMS. * If a knot or lump forms under the skin, increases in size, or causes pain. * If bruising appears to be worsening or moving further down your leg instead of disappearing. * Temperature above 101 F. CARE OF YOUR GROIN INCISION; * Bruising or purple discoloration of the skin near the puncture site is common. * You may shower only, no bathtub bathing for 5 days. Be careful to avoid slipping as your leg may feel stiff. * If a closure device was used on your femoral artery, please see the attached guide regarding care of the device and your leg. * REMOVE the dressing from your groin the next day after your procedure in the shower. CARE OF YOUR WRIST INCISION; * Bruising or purple discoloration of the skin near the puncture site is common. * You may shower. * DO NOT submerge wrist. * Remove dressing in 24 hours. Tan IBARRA MD Nov 22, 2016 1:28 pm
[2016-11-22 14:00] VITALS: BP 94/61
--- NOTE | 2016-11-22 14:06 | Cardiology Discharge Summary ---
Diagnosis/Chief Complaint Date of Admission Nov 20, 2016 at 12:04 pm Date of Discharge 11/22/2016 Admission Diagnosis unstable angina, refractory to 2 antianginal agents Final/Discharge Diagnosis patent stent in the RCA, ostial RCA spasm Chief Complaint/HPI Chief Complaint/HPI this is a 51-year-old lady with history of active smoking and diabetes. She quit smoking in April 2016. She presented and of September last year with non- STEMI and was found to have occluded mid RCA treated successfully with a drug- eluting stent. She was discharged on aspirin and Plavix. She presents again today with complain of chest tightness since 730 in the morning. Initial chest tightness was 7/10 with relief with nitroglycerin. She also complained of radiation to the side of the chest. She denied having any heartburn. She says it's similar to her previous symptoms during the non-STEMI but not as severe. Patient denies any shortness of breath, palpitation, syncope or near syncope. Patient was compliant with Plavix. Discharge Summary Procedures None. Discharge Physical Examination stable Hospital Course negative EKG and serial cardiac enzymes. Coronary angiography revealed patent drug-eluting stent in the mid/distal RCA. Moderate ostial disease noted. FFR 0.96. Pending Labs Laboratory Tests 11/22/16 11:15: Glucometer 317 Discussion & Recommendations Discussion start ticagrelor and discharged on Imdur. Discharge took over 30 minutes. Follow up appt.: Dr. Ibarra in one month. follow-up with Dr. Hale. Dicharge Diet: Cardiac Diet Activity as Tolerated: Yes Home Medications Reviewed patient Home Medication Reconciliation Form Discharge Home Medications: Reviewed and agree with Discharge Medication list on patient's Discharge Instruction sheet Condition at discharge stable Instructions to patient/family Dr Ibarra in a month. follow-up with Dr Hale Clinical Quality Measures AMI/AHF: ASA po Prior to arrival: No DVT/VTE Risk/Contraindication: Risk Factor Score Per Nursin RFS Level Per Nursing on Admit: 1=Low/No VTE PPX Tan IBARRA MD Nov 22, 2016 2:05 pm
--- NOTE | 2016-11-23 09:13 | CARDIAC CATHETERIZATION ---
PROCEDURE PHYSICIAN: LUCA MCBRIDE DATE OF PROCEDURE: 11/21/2016 INDICATION: Unstable angina, refractory to at least two antianginal agents including nitroglycerin in the ER. PREOPERATIVE DIAGNOSIS: Unstable angina, refractory to at least two antianginal agents including nitroglycerin. POSTOPERATIVE DIAGNOSIS: Patent stent, ostial RCA spasm. HISTORY: Ms. Nunes is a 51-year-old lady with history of diabetes and active smoking. She presented the end of last year on 10/18/2016 with non-ST elevation NH. Coronary angiography revealed an occluded mid/distal RCA which was treated successfully with a drug eluting stent. She presented yesterday with her prolonged and ongoing chest pain, which was similar in quality to her previous chest pain episode however, less intense. She was given in nitroglycerin with some improvement in her chest pain intensity; however, it took a few hours before the chest pain was resolved. Her cardiac enzymes stayed negative. EKG did not reveal any significant ST T wave abnormalities. Due unstable angina, refractory to antianginal agents, she urgently taken to the [facility]. Also she was loaded with ticagrelor and given low molecular weight heparin. PROCEDURE PERFORMED: 1. Coronary angiography. 2. Left heart catheterization. 3. FFR to the RCA. SPECIMENS: None. COMPLICATIONS: None. ESTIMATED BLOOD LOSS: 20 mL. FLUOROSCOPY TIME: 4.1 minute. FLUOROSCOPY DOSE: 384 mGy. CONTRAST: Omnipaque 105 mL. PROCEDURE DETAILS: After informed consent, the patient was brought to the [facility]. She was draped and prepped in the usual sterile fashion. Access was gained in the right radial artery with a 6-Azeri sheath. Coronary angiography and left heart catheterization was performed with a Curtis catheter. FINDINGS: 1. Left heart catheterization: Aortic pressure 104-74 mmHg, LV pressure 102/6 mmHg, LVEDP 10 mmHg. Normal LV function with no wall motion abnormalities. There was no gradient across the aortic valve. 2. RCA: Moderate to severe disease noted in the ostium of the RCA. This could be spasm. Nitroglycerin 200 mcg was given with no significant improvement. The stent is patent with no distal disease. 3. Patent left main. 4. Left circumflex artery: Mild diffuse disease with no severe stenosis. 5. Mild ostial/proximal LAD disease (20 to 30%). Mild mid LAD disease with no significant stenosis. RECOMMENDATION: FFR to ostium of ostial RCA is recommended. FFR DETAILS: JR4 guide catheter with side holes, IV heparin for anticoagulation. ACT was 291 seconds. Pressure wire was used as a guidewire. The lesion was crossed with a pressure wire. Baseline FFR was 0.99. Adenosine infusion IV was started at 140 mcg/kg/min. This was continued for 2 minutes. Lowest FFR was 0.96 which is normal. Pressure wire was removed and an angiogram did not reveal any vascular complications. Radial band was placed. CONCLUSION: 1. Possible spasm of the ostium of the RCA with negative FFR. Low dose Imdur will be given. She will continue on aspirin, Brilinta , high-dose statin. 2. Continue rest of the medications. Job ID: [id number] Dictated Date: 11/21/2016 18:11:55 Career Resource Specialist Date: 11/23/2016 08:56:01 / leilani MIRANDA
--- OUTSIDE RECORDS SUMMARY | 2016-11-27 13:28 | XMS REPORT | Continuity of Care Document ---
Author Author [facility] Organization [facility] Address Unknown Phone Unavailable Allergies Active Description Code Type Severity Reaction Onset Reported/Identified Relationship to Patient Clinical Status Yes codeine [id number] Drug Allergy Unknown N/A 12/19/2007 Medications Problems Date Dx Coded Attending Type Code Diagnosis Diagnosed By 06/29/2012 Ot 923.11 CONTUSION OF ELBOW 06/29/2012 Ot 959.3 ELB/FOREARM/WRST INJ NOS 06/29/2012 Ot E000.8 OTHER EXTERNAL CAUSE STATUS 06/29/2012 Ot E849.0 ACCIDENT IN HOME 06/29/2012 Ot E884.2 FALL FROM CHAIR 10/09/2012 Ot 250.00 DIAB CEM WO COMPL, TYPE II OR UNSPEC TY 10/09/2012 Ot 272.4 HYPERLIPIDEMIA NEC/NOS 10/09/2012 Ot 305.1 TOBACCO USE DISORDER 10/09/2012 Ot 401.9 HYPERTENSION NOS 10/09/2012 Ot 530.81 ESOPHAGEAL REFLUX 10/09/2012 Ot 592.0 CALCULUS OF KIDNEY 10/09/2012 Ot 592.1 CALCULUS OF URETER 10/09/2012 Ot 599.70 HEMATURIA, UNSPECIFIED 10/09/2012 Ot 618.01 CYSTOCELE, MIDLINE 10/09/2012 Ot V12.04 PERSONAL HIST OF METHICILLIN RESISTANT S 02/19/2013 Ot 592.9 URINARY CALCULUS NOS 03/21/2014 REINA RIVERO, ISAIAS Wei Ot 250.00 DIAB CEM WO COMPL, TYPE II OR UNSPEC TY 03/21/2014 ISAIAS HUANG MD Ot 692.71 SUNBURN 03/21/2014 ISAIAS HUANG MD Ot 782.3 EDEMA 03/21/2014 ISAIAS HUANG MD Ot 914.4 INSECT BITE HAND 03/21/2014 ISAIAS HUANG MD Ot E906.4 NONVENOM ARTHROPOD BITE 08/13/2014 ELIO IBRAHIM, COREY P Ot 726.91 EXOSTOSIS, SITE NOS 08/13/2014 BALLARD DPM, COREY P Ot 735.0 HALLUX VALGUS 08/13/2014 BALLARD DPM, COREY P Ot 735.4 OTHER HAMMER TOE 10/11/2014 POLLY DAVIS DOLINE S Ot 790.6 10/11/2014 SUSAN YU, AMADO S Ot V16.0 11/03/2014 BALLARD DPM, COREY P Ot 726.91 11/03/2014 BALLARD DPM, COREY P Ot 735.0 11/03/2014 BALLARD DPM, COREY P Ot 735.4 11/03/2014 BALLARD DPM, COREY P Ot V72.84 11/03/2014 BALLARD DPM, COREY P Ot V74.8 11/03/2014 SUSAN YU, AMADO S Ot 790.6 11/03/2014 SUSAN YU, AMADO S Ot V16.0 11/19/2014 SUSAN YU, AMADO S Ot V76.12 05/02/2016 VIKTORIA CORDOVA [employer] Ot R07.81 PLEURODYNIA 05/02/2016 VANBECELAERE, VIKTORIA M [employer] DRAFTSPERSON Ot R07.81 PLEURODYNIA 05/18/2016 VIKTORIA CORDOVA M [employer] DRAFTSPERSON Ot R07.81 PLEURODYNIA 06/21/2016 KAMIBECELAERE, VIKTORIA M [employer] DRAFTSPERSON Ot R07.81 PLEURODYNIA 10/18/2016 NAE MOSER MD Ot E11.9 TYPE 2 DIABETES MELLITUS WITHOUT COMPLIC 10/18/2016 NAE MOSER MD Ot F17.210 NICOTINE DEPENDENCE, CIGARETTES, UNCOMPL 10/18/2016 NAE MOSER MD Ot K21.9 GASTRO-ESOPHAGEAL REFLUX DISEASE WITHOUT 10/18/2016 NAE MOSER MD Ot R10.13 EPIGASTRIC PAIN 10/18/2016 NAE MOSER MD Ot Z79.4 NURSING HOME (CURRENT) USE OF INSULIN 10/18/2016 VIKTORIA CORDOVAP Ot R07.81 PLEURODYNIA 10/18/2016 Ot V76.12 OTH SCREEN MAMMO-MALIGN NEOPLASM OF LUNA 10/18/2016 Ot 571.8 CHRONIC LIVER DIS NEC 10/18/2016 Ot 592.0 CALCULUS OF KIDNEY 10/18/2016 Ot 592.1 CALCULUS OF URETER 10/18/2016 Ot 596.9 BLADDER DISORDER NOS 10/18/2016 Ot 789.00 ABDOMINAL PAIN, UNSPECIFIED SITE 10/18/2016 Ot 592.9 URINARY CALCULUS NOS 10/18/2016 BALLARD DPM, COREY P Ot 726.91 EXOSTOSIS, SITE NOS 10/18/2016 BALLARD DPM, COREY P Ot 735.0 HALLUX VALGUS 10/18/2016 BALLARD DPM, COREY P Ot 735.4 OTHER HAMMER TOE 10/18/2016 BALLARD DPM, COREY P Ot V72.84 EXAM PRE-OPERATIVE NOS 10/18/2016 BALLARD DPM, COREY P Ot V74.8 SCREEN-BACTERIAL DIS NEC 10/18/2016 AMADO DAVIS DO S Ot 790.6 ABN BLOOD CHEMISTRY NEC 10/18/2016 AMADO DAVIS DO S Ot V16.0 FAMILY HX-GI MALIGNANCY 10/18/2016 AMADO DAVIS DO S Ot V76.12 OTH SCREEN MAMMO-MALIGN NEOPLASM OF LUNA 10/18/2016 VIKTORIA CORDOVA M [employer] Ot R07.81 PLEURODYNIA 10/19/2016 NAE MOSER MD Ot E11.9 TYPE 2 DIABETES MELLITUS WITHOUT COMPLIC 10/19/2016 NAE MOSER MD Ot F17.210 NICOTINE DEPENDENCE, CIGARETTES, UNCOMPL 10/19/2016 NAE MOSER MD Ot K21.9 GASTRO-ESOPHAGEAL REFLUX DISEASE WITHOUT 10/19/2016 NAE MOSER MD Ot R10.13 EPIGASTRIC PAIN 10/19/2016 NAE MOSER MD Ot Z79.4 NURSING HOME (CURRENT) USE OF INSULIN 10/20/2016 AMADO DAVIS DO S Ot E11.65 TYPE 2 DIABETES MELLITUS WITH HYPERGLYCE 10/20/2016 AMADO DAVIS DO S Ot I21.4 NON-ST ELEVATION (NSTEMI) MYOCARDIAL INF 10/20/2016 AMADO DAVIS DO S Ot K21.9 GASTRO-ESOPHAGEAL REFLUX DISEASE WITHOUT 10/20/2016 AMADO DAVIS DO S Ot Z79.4 DELIVERY LEAD (CURRENT) USE OF INSULIN 10/20/2016 AMADO DAVIS DO Ot Z87.891 PERSONAL HISTORY OF NICOTINE DEPENDENCE 10/20/2016 AMADO DAVIS DO Ot Z91.19 PATIENT'S NONCOMPLIANCE W [facility] 11/20/2016 VIKTORIA CORDOVA Ot R07.81 PLEURODYNIA Procedures Code Description Performed By Performed On 985567A DILATION OF 1 COR ART WITH DRUG-ELUT INT 10/19/2016 [id number] MEASURE OF CARDIAC SAMPL PRESSURE, L H 10/19/2016 [id number] FLUOROSCOPY OF MULT COR ART USING L OSM 10/19/2016 [id number] FLUOROSCOPY OF LEFT HEART USING LOW OSMO 10/19/2016 Results Test Result Range Automated blood complete blood count (hemogram) panel - 10/18/16 08:30 Blood leukocytes automated count (number/volume) 11.0 10*3/ uL 4.3-11.0 Blood erythrocytes automated count (number/volume) 4.61 10*6 /uL 4.35-5.85 Venous blood hemoglobin measurement (mass/volume) 15.0 g/dL 11.5-16.0 Blood hematocrit (volume fraction) 44 % 35-52 Automated erythrocyte mean corpuscular volume 95 [foz_us] 80-99 Automated erythrocyte mean corpuscular hemoglobin (mass per erythrocyte) 33 pg 25-34 Automated erythrocyte mean corpuscular hemoglobin concentration measurement ( mass/volume) 34 g/dL 32-36 Automated erythrocyte distribution width ratio 13.0 % 10.0-14.5 Automated blood platelet count (count/volume) 262 10*3/uL 130-400 Automated blood platelet mean volume measurement 11.6 [foz_ us] 7.4-10.4 Comprehensive metabolic panel - 10/18/16 08:30 Serum or plasma sodium measurement (moles/volume) 134 mmol/ L 135-145 Serum or plasma potassium measurement (moles/volume) 4.7 mmol/L 3.6-5.0 Serum or plasma chloride measurement (moles/volume) 99 mmol/ L 98-107 Carbon dioxide 23 mmol/L 21-32 Serum or plasma anion gap determination (moles/volume) 12 mmol/L 5-14 Serum or plasma urea nitrogen measurement (mass/volume) 12 mg/dL 7-18 Serum or plasma creatinine measurement (mass/volume) 0.83 mg /dL 0.60-1.30 Serum or plasma urea nitrogen/creatinine mass ratio 14 NRG Serum or plasma creatinine measurement with calculation of estimated glomerular filtration rate > NRG Serum or plasma glucose measurement (mass/volume) 415 mg/dL 70-105 Serum or plasma calcium measurement (mass/volume) 10.4 mg/ dL 8.5-10.1 Serum or plasma total bilirubin measurement (mass/volume) 0.4 mg/dL 0.1-1.0 Serum or plasma alkaline phosphatase measurement (enzymatic activity/volume) 125 U/L 40-136 Serum or plasma aspartate aminotransferase measurement (enzymatic activity/ volume) 34 U/L 5-34 Serum or plasma alanine aminotransferase measurement (enzymatic activity/volume ) 54 U/L 0-55 Serum or plasma protein measurement (mass/volume) 7.6 g/dL 6.4-8.2 Serum or plasma albumin measurement (mass/volume) 4.2 g/dL 3.2-4.5 Serum or plasma troponin i.cardiac measurement (mass/volume) - 10/18/16 08:30 Serum or plasma troponin i.cardiac measurement (mass/volume) < ng/mL <0.30 Complete urinalysis with reflex to culture - 10/18/16 10:10 Urine color determination YELLOW NRG Urine clarity determination CLEAR NRG Urine pH measurement by test strip 7 5- 9 Specific gravity of urine by test strip 1.015 1.016-1.022 Urine protein assay by test strip, semi-quantitative NEGATIVE NEGATIVE Urine glucose detection by automated test strip 4+ NEGATIVE Erythrocytes detection in urine sediment by light microscopy NEGATIVE NEGATIVE Urine ketones detection by automated test strip NEGATIVE NEGATIVE Urine nitrite detection by test strip NEGATIVE NEGATIVE Urine total bilirubin detection by test strip NEGATIVE NEGATIVE Urine urobilinogen measurement by automated test strip (mass/volume) NORMAL NORMAL Urine leukocyte esterase detection by dipstick NEGATIVE NEGATIVE Automated urine sediment erythrocyte count by microscopy (number/high power field) NONE NRG Automated urine sediment leukocyte count by microscopy (number/high power field ) RARE NRG Bacteria detection in urine sediment by light microscopy NEGATIVE NRG Squamous epithelial cells detection in urine sediment by light microscopy RARE NRG Crystals detection in urine sediment by light microscopy NONE NRG Casts detection in urine sediment by light microscopy NONE NRG Mucus detection in urine sediment by light microscopy NEGATIVE NRG Complete urinalysis with reflex to culture NO NRG Capillary blood glucose measurement by glucometer (mass/volume) - 10/18/16 11: 44 Capillary blood glucose measurement by glucometer (mass/volume) 196 mg/dL 70-110 Automated blood complete blood count (hemogram) panel - 10/18/16 19:35 Blood leukocytes automated count (number/volume) 12.7 10*3/ uL 4.3-11.0 Blood erythrocytes automated count (number/volume) 4.36 10*6 /uL 4.35-5.85 Venous blood hemoglobin measurement (mass/volume) 14.0 g/dL 11.5-16.0 Blood hematocrit (volume fraction) 41 % 35-52 Automated erythrocyte mean corpuscular volume 94 [foz_us] 80-99 Automated erythrocyte mean corpuscular hemoglobin (mass per erythrocyte) 32 pg 25-34 Automated erythrocyte mean corpuscular hemoglobin concentration measurement ( mass/volume) 34 g/dL 32-36 Automated erythrocyte distribution width ratio 12.8 % 10.0-14.5 Automated blood platelet count (count/volume) 249 10*3/uL 130-400 Automated blood platelet mean volume measurement 11.7 [foz_ us] 7.4-10.4 PT panel in platelet poor plasma by coagulation assay - 10/18/16 19:35 Prothrombin time (PT) in platelet poor plasma by coagulation assay 13.3 s 12.2-14.7 INR in platelet poor plasma or blood by coagulation assay 1.0 0.8-1.4 Activated partial thromboplastin time (aPTT) in platelet poor plasma bycoagulation assay - 10/18/16 19:35 Activated partial thromboplastin time (aPTT) in platelet poor plasma bycoagulation assay 189 s 24-35 Serum or plasma troponin i.cardiac measurement (mass/volume) - 10/18/16 19:35 Serum or plasma troponin i.cardiac measurement (mass/volume) 1.84 ng/mL <0.30 Capillary blood glucose measurement by glucometer (mass/volume) - 10/18/16 21: 39 Capillary blood glucose measurement by glucometer (mass/volume) 222 mg/dL 70-110 Complete blood count (CBC) with automated white blood cell (WBC) differential - 10/19/16 01:10 Blood leukocytes automated count (number/volume) 12.8 10*3/ uL 4.3-11.0 Blood erythrocytes automated count (number/volume) 4.03 10*6 /uL 4.35-5.85 Venous blood hemoglobin measurement (mass/volume) 13.0 g/dL 11.5-16.0 Blood hematocrit (volume fraction) 39 % 35-52 Automated erythrocyte mean corpuscular volume 96 [foz_us] 80-99 Automated erythrocyte mean corpuscular hemoglobin (mass per erythrocyte) 32 pg 25-34 Automated erythrocyte mean corpuscular hemoglobin concentration measurement ( mass/volume) 34 g/dL 32-36 Automated erythrocyte distribution width ratio 13.0 % 10.0-14.5 Automated blood platelet count (count/volume) 223 10*3/uL 130-400 Automated blood platelet mean volume measurement 11.4 [foz_ us] 7.4-10.4 Automated blood neutrophils/100 leukocytes 46 % 42-75 Automated blood lymphocytes/100 leukocytes 45 % 12-44 Blood monocytes/100 leukocytes 7 % 0-12 Automated blood eosinophils/100 leukocytes 1 % 0-10 Automated blood basophils/100 leukocytes 0 % 0-10 Blood neutrophils automated count (number/volume) 5.9 10*3 1.8-7.8 Blood lymphocytes automated count (number/volume) 5.7 10*3 1.0-4.0 Blood monocytes automated count (number/volume) 0.9 10*3 0.0-1.0 Automated eosinophil count 0.1 10*3/uL 0.0-0.3 Automated blood basophil count (count/volume) 0.0 10*3/uL 0.0-0.1 Activated partial thromboplastin time (aPTT) in platelet poor plasma bycoagulation assay - 10/19/16 01:10 Activated partial thromboplastin time (aPTT) in platelet poor plasma bycoagulation assay 179 s 24-35 Comprehensive metabolic panel - 10/19/16 01:10 Serum or plasma sodium measurement (moles/volume) 136 mmol/ L 135-145 Serum or plasma potassium measurement (moles/volume) 4.1 mmol/L 3.6-5.0 Serum or plasma chloride measurement (moles/volume) 105 mmol /L 98-107 Carbon dioxide 23 mmol/L 21-32 Serum or plasma anion gap determination (moles/volume) 8 mmol/L 5-14 Serum or plasma urea nitrogen measurement (mass/volume) 14 mg/dL 7-18 Serum or plasma creatinine measurement (mass/volume) 0.72 mg /dL 0.60-1.30 Serum or plasma urea nitrogen/creatinine mass ratio 19 NRG Serum or plasma creatinine measurement with calculation of estimated glomerular filtration rate > NRG Serum or plasma glucose measurement (mass/volume) 235 mg/dL 70-105 Serum or plasma calcium measurement (mass/volume) 8.6 mg/dL 8.5-10.1 Serum or plasma total bilirubin measurement (mass/volume) 0.5 mg/dL 0.1-1.0 Serum or plasma alkaline phosphatase measurement (enzymatic activity/volume) 111 U/L 40-136 Serum or plasma aspartate aminotransferase measurement (enzymatic activity/ volume) 66 U/L 5-34 Serum or plasma alanine aminotransferase measurement (enzymatic activity/volume ) 49 U/L 0-55 Serum or plasma protein measurement (mass/volume) 6.1 g/dL 6.4-8.2 Serum or plasma albumin measurement (mass/volume) 3.6 g/dL 3.2-4.5 Serum or plasma phosphate measurement (mass/volume) - 10/19/16 01:10 Serum or plasma phosphate measurement (mass/volume) 4.3 mg/ dL 2.3-4.7 Magnesium - 10/19/16 01:10 Magnesium 2.0 mg/dL 1.8-2.4 Lipid 1996 panel - 10/19/16 01:10 Serum or plasma triglyceride measurement (mass/volume) 123 mg/dL <150 Serum or plasma cholesterol measurement (mass/volume) 170 mg /dL < 200 Serum or plasma cholesterol in HDL measurement (mass/volume) 31 mg/dL 40-60 Cholesterol in LDL [mass/volume] in serum or plasma by direct assay 129 mg/dL 1-129 Serum or plasma cholesterol in VLDL measurement (mass/volume) 25 mg/dL 5-40 Serum or plasma troponin i.cardiac measurement (mass/volume) - 10/19/16 01:10 Serum or plasma troponin i.cardiac measurement (mass/volume) 5.39 ng/mL <0.30 Methicillin resistant Staphylococcus aureus (MRSA) screening culture - 08:45 MRSA SCREEN RESULT MRSA ISOLATED NRG Activated partial thromboplastin time (aPTT) in platelet poor plasma bycoagulation assay - 10/19/16 08:50 Activated partial thromboplastin time (aPTT) in platelet poor plasma bycoagulation assay 127 s 24-35 Capillary blood glucose measurement by glucometer (mass/volume) - 10/19/16 20: 53 Capillary blood glucose measurement by glucometer (mass/volume) 181 mg/dL 70-110 Myoglobin, serum - 10/19/16 21:44 Myoglobin, serum 41.1 ng/mL 10.0-92.0 Complete blood count (CBC) with automated white blood cell (WBC) differential - 10/20/16 04:01 Blood leukocytes automated count (number/volume) 10.3 10*3/ uL 4.3-11.0 Blood erythrocytes automated count (number/volume) 3.73 10*6 /uL 4.35-5.85 Venous blood hemoglobin measurement (mass/volume) 12.0 g/dL 11.5-16.0 Blood hematocrit (volume fraction) 36 % 35-52 Automated erythrocyte mean corpuscular volume 97 [foz_us] 80-99 Automated erythrocyte mean corpuscular hemoglobin (mass per erythrocyte) 32 pg 25-34 Automated erythrocyte mean corpuscular hemoglobin concentration measurement ( mass/volume) 33 g/dL 32-36 Automated erythrocyte distribution width ratio 13.1 % 10.0-14.5 Automated blood platelet count (count/volume) 198 10*3/uL 130-400 Automated blood platelet mean volume measurement 11.8 [foz_ us] 7.4-10.4 Automated blood neutrophils/100 leukocytes 57 % 42-75 Automated blood lymphocytes/100 leukocytes 33 % 12-44 Blood monocytes/100 leukocytes 9 % 0-12 Automated blood eosinophils/100 leukocytes 1 % 0-10 Automated blood basophils/100 leukocytes 0 % 0-10 Blood neutrophils automated count (number/volume) 5.8 10*3 1.8-7.8 Blood lymphocytes automated count (number/volume) 3.4 10*3 1.0-4.0 Blood monocytes automated count (number/volume) 0.9 10*3 0.0-1.0 Automated eosinophil count 0.1 10*3/uL 0.0-0.3 Automated blood basophil count (count/volume) 0.0 10*3/uL 0.0-0.1 Whole blood basic metabolic panel - 10/20/16 04:01 Serum or plasma sodium measurement (moles/volume) 139 mmol/ L 135-145 Serum or plasma potassium measurement (moles/volume) 4.0 mmol/L 3.6-5.0 Serum or plasma chloride measurement (moles/volume) 110 mmol /L 98-107 Carbon dioxide 22 mmol/L 21-32 Serum or plasma anion gap determination (moles/volume) 7 mmol/L 5-14 Serum or plasma urea nitrogen measurement (mass/volume) 10 mg/dL 7-18 Serum or plasma creatinine measurement (mass/volume) 0.67 mg /dL 0.60-1.30 Serum or plasma urea nitrogen/creatinine mass ratio 15 NRG Serum or plasma creatinine measurement with calculation of estimated glomerular filtration rate > NRG Serum or plasma glucose measurement (mass/volume) 151 mg/dL 70-105 Serum or plasma calcium measurement (mass/volume) 8.2 mg/dL 8.5-10.1 Serum or plasma phosphate measurement (mass/volume) - 10/20/16 04:01 Serum or plasma phosphate measurement (mass/volume) 2.5 mg/ dL 2.3-4.7 Magnesium - 10/20/16 04:01 Magnesium 2.0 mg/dL 1.8-2.4 Complete blood count (CBC) with automated white blood cell (WBC) differential - 11/20/16 11:10 Blood leukocytes automated count (number/volume) 10.9 10*3/ uL 4.3-11.0 Blood erythrocytes automated count (number/volume) 4.55 10*6 /uL 4.35-5.85 Venous blood hemoglobin measurement (mass/volume) 14.6 g/dL 11.5-16.0 Blood hematocrit (volume fraction) 43 % 35-52 Automated erythrocyte mean corpuscular volume 95 [foz_us] 80-99 Automated erythrocyte mean corpuscular hemoglobin (mass per erythrocyte) 32 pg 25-34 Automated erythrocyte mean corpuscular hemoglobin concentration measurement ( mass/volume) 34 g/dL 32-36 Automated erythrocyte distribution width ratio 13.1 % 10.0-14.5 Automated blood platelet count (count/volume) 262 10*3/uL 130-400 Automated blood platelet mean volume measurement 11.2 [foz_ us] 7.4-10.4 Automated blood neutrophils/100 leukocytes 70 % 42-75 Automated blood lymphocytes/100 leukocytes 24 % 12-44 Blood monocytes/100 leukocytes 4 % 0-12 Automated blood eosinophils/100 leukocytes 2 % 0-10 Automated blood basophils/100 leukocytes 0 % 0-10 Blood neutrophils automated count (number/volume) 7.7 10*3 1.8-7.8 Blood lymphocytes automated count (number/volume) 2.6 10*3 1.0-4.0 Blood monocytes automated count (number/volume) 0.5 10*3 0.0-1.0 Automated eosinophil count 0.2 10*3/uL 0.0-0.3 Automated blood basophil count (count/volume) 0.0 10*3/uL 0.0-0.1 PT panel in platelet poor plasma by coagulation assay - 11/20/16 11:10 Prothrombin time (PT) in platelet poor plasma by coagulation assay 13.3 s 12.2-14.7 INR in platelet poor plasma or blood by coagulation assay 1.0 0.8-1.4 Activated partial thromboplastin time (aPTT) in platelet poor plasma bycoagulation assay - 11/20/16 11:10 Activated partial thromboplastin time (aPTT) in platelet poor plasma bycoagulation assay 34 s 24-35 Comprehensive metabolic panel - 11/20/16 11:10 Serum or plasma sodium measurement (moles/volume) 137 mmol/ L 135-145 Serum or plasma potassium measurement (moles/volume) 4.2 mmol/L 3.6-5.0 Serum or plasma chloride measurement (moles/volume) 104 mmol /L 98-107 Carbon dioxide 23 mmol/L 21-32 Serum or plasma anion gap determination (moles/volume) 10 mmol/L 5-14 Serum or plasma urea nitrogen measurement (mass/volume) 13 mg/dL 7-18 Serum or plasma creatinine measurement (mass/volume) 0.80 mg /dL 0.60-1.30 Serum or plasma urea nitrogen/creatinine mass ratio 16 NRG Serum or plasma creatinine measurement with calculation of estimated glomerular filtration rate > NRG Serum or plasma glucose measurement (mass/volume) 383 mg/dL 70-105 Serum or plasma calcium measurement (mass/volume) 8.7 mg/dL 8.5-10.1 Serum or plasma total bilirubin measurement (mass/volume) 0.5 mg/dL 0.1-1.0 Serum or plasma alkaline phosphatase measurement (enzymatic activity/volume) 130 U/L 40-136 Serum or plasma aspartate aminotransferase measurement (enzymatic activity/ volume) 23 U/L 5-34 Serum or plasma alanine aminotransferase measurement (enzymatic activity/volume ) 33 U/L 0-55 Serum or plasma protein measurement (mass/volume) 6.8 g/dL 6.4-8.2 Serum or plasma albumin measurement (mass/volume) 4.0 g/dL 3.2-4.5 Magnesium - 11/20/16 11:10 Magnesium 1.8 mg/dL 1.8-2.4 Serum or plasma troponin i.cardiac measurement (mass/volume) - 11/20/16 11:10 Serum or plasma troponin i.cardiac measurement (mass/volume) < ng/mL <0.30 Myoglobin, serum - 11/20/16 11:10 Myoglobin, serum 22.6 ng/mL 10.0-92.0 Serum or plasma troponin i.cardiac measurement (mass/volume) - 11/20/16 17:01 Serum or plasma troponin i.cardiac measurement (mass/volume) < ng/mL <0.30 Serum or plasma troponin i.cardiac measurement (mass/volume) - 11/20/16 17:01 Serum or plasma troponin i.cardiac measurement (mass/volume) < ng/mL <0.30 Capillary blood glucose measurement by glucometer (mass/volume) - 11/20/16 17: 30 Capillary blood glucose measurement by glucometer (mass/volume) 141 mg/dL 70-110 Capillary blood glucose measurement by glucometer (mass/volume) - 11/20/16 21: 39 Capillary blood glucose measurement by glucometer (mass/volume) 239 mg/dL 70-110 Lipid 1996 panel - 11/21/16 03:55 Serum or plasma triglyceride measurement (mass/volume) 145 mg/dL <150 Serum or plasma cholesterol measurement (mass/volume) 104 mg /dL < 200 Serum or plasma cholesterol in HDL measurement (mass/volume) 25 mg/dL 40-60 Cholesterol in LDL [mass/volume] in serum or plasma by direct assay 62 mg/dL 1-129 Serum or plasma cholesterol in VLDL measurement (mass/volume) 29 mg/dL 5-40 Serum or plasma troponin i.cardiac measurement (mass/volume) - 11/21/16 03:55 Serum or plasma troponin i.cardiac measurement (mass/volume) < ng/mL <0.30 Capillary blood glucose measurement by glucometer (mass/volume) - 11/21/16 06: 16 Capillary blood glucose measurement by glucometer (mass/volume) 231 mg/dL 70-110 Capillary blood glucose measurement by glucometer (mass/volume) - 11/21/16 11: 09 Capillary blood glucose measurement by glucometer (mass/volume) 317 mg/dL 70-110 Capillary blood glucose measurement by glucometer (mass/volume) - 11/21/16 17: 01 Capillary blood glucose measurement by glucometer (mass/volume) 121 mg/dL 70-110 Capillary blood glucose measurement by glucometer (mass/volume) - 11/21/16 20: 54 Capillary blood glucose measurement by glucometer (mass/volume) 320 mg/dL 70-110 Capillary blood glucose measurement by glucometer (mass/volume) - 11/22/16 05: 17 Capillary blood glucose measurement by glucometer (mass/volume) 230 mg/dL 70-110 Capillary blood glucose measurement by glucometer (mass/volume) - 11/22/16 11: 15 Capillary blood glucose measurement by glucometer (mass/volume) 317 mg/dL 70-110 Encounters ACCT No. Visit Date/Time Discharge Status Pt. Type Provider Facility Loc./Unit Complaint [id number] 11/20/2016 12:04:00 2016 14:00:00 DIS Inpatient ASTERNDER DO AMADO S [facility] ICU CHEST PAIN [id number] 10/18/2016 19:45:00 2015 14:45:00 DIS Inpatient SUSAN DO AMADO S [facility] ICU NON-STEMI [id number] 10/18/2016 08:16:00 2015 12:27:00 DIS Emergency SHANTI RIVERO, NAE Silverman [facility] ER HEARTBURN/CHEST PAIN SOA [id number] 11/02/2014 07:31:00 2014 23:59:59 CLS Outpatient ASTERNDER DO AMADO S [facility] RAD SCREENING [id number] 09/22/2014 09:43:00 2013 23:59:59 CLS Outpatient ASTERNDER DO AMADO S [facility] RAD INCREASED LFT'S,FAMILY HX LIVER CA [id number] 08/13/2014 06:00:00 2013 10:30:00 DIS Outpatient COREY BALLARD DPM [facility] SDC RIGHT HAMMERTOE [id number] 08/09/2014 08:44:00 2013 23:59:59 CLS Outpatient COREY BALLARD DPM [facility] PREOP RIGHT HAMMERTOE [id number] 03/21/2014 21:47:00 2013 22:45:00 DIS Emergency ISAIAS HUANG MD [facility] ER BUG BITE [id number] 04/30/2016 09:07:00 ACT Outpatient VIKTORIA CORDOVA [facility] RAD RT RIB PAIN [id number] 02/20/2013 00:00:00 Document Registration [id number] 11/21/2012 15:52:00 Document Registration [id number] 10/08/2012 10:40:00 Document Registration [id number] 10/07/2012 07:55:00 Document Registration [id number] 08/21/2012 14:56:00 Document Registration [id number] 06/29/2012 22:30:00 Document Registration
== END 2016-11-22 14:00 | disposition home or self-care (01) ==
LOC: EDUNIT# 10:50 → ER 10:52 → UNDOADMOB 12:04 → ICU 12:04 → CATH 13:20 → ICU 13:20 → UNDODISOB 11-22 14:00 → CATH 11-22 14:00
PROVIDERS: ATTEND Family Medicine
DX: I25.110 Atherosclerotic heart disease of native coronary artery with unstable angina pectoris (principal); I25.2 Old myocardial infarction; E11.9 Type 2 diabetes mellitus without complications; Z79.899 Other long term (current) drug therapy; Z79.4 Long term (current) use of insulin; Z95.5 Presence of coronary angioplasty implant and graft; Z87.891 Personal history of nicotine dependence
CPT/HCPCS: 36415; 71010; 80053; 80061; 82962; 83735; 83874; 84484; 85025; 85347; 85610; 85730; 93005; 93041; 93458; 93571; 96372; G0378

== ENCOUNTER → 2016-12-28 | Outpatient (CLI) | payer OTHER ==
[~2016-12-28] MED LIST changes: +ASPI-983 PO; +ATOR80TA64 PO; +CLOP75TA69 PO; +INSU100I29 SC; +ISOS30TA3 PO; +METO-270 PO; +PANT40TA3 PO; +TICA90TA PO
--- OUTSIDE RECORDS SUMMARY | 2016-12-28 09:45 | XMS REPORT | Continuity of Care Document ---
Author Author [facility] Organization [facility] Address Unknown Phone Unavailable Allergies Active Description Code Type Severity Reaction Onset Reported/Identified Relationship to Patient Clinical Status Yes codeine [id number] Drug Allergy Unknown N/A 12/19/2007 Medications Problems [...] AMADO S Ot V76.12 05/02/2016 VIKTORIA CORDOVA GROMMET MACHINE OPERATOR Ot R07.81 PLEURODYNIA 05/02/2016 VANBECELAERE, VIKTORIA M GROMMET MACHINE OPERATOR Ot R07.81 PLEURODYNIA 05/18/2016 VIKTORIA CORDOVA M GROMMET MACHINE OPERATOR Ot R07.81 PLEURODYNIA 06/21/2016 KAMIBECELAERE, VIKTORIA M GROMMET MACHINE OPERATOR Ot R07.81 PLEURODYNIA 10/18/2016 NAE MOSER MD Ot E11.9 TYPE 2 DIABETES MELLITUS WITHOUT COMPLIC 10/18/2016 NAE MOSER MD Ot F17.210 NICOTINE DEPENDENCE, CIGARETTES, UNCOMPL 10/18/2016 NAE MOSER MD Ot K21.9 GASTRO-ESOPHAGEAL REFLUX DISEASE WITHOUT 10/18/2016 NAE MOSER MD Ot R10.13 EPIGASTRIC PAIN 10/18/2016 NAE MOSER MD Ot Z79.4 ASSISTED (CURRENT) USE OF INSULIN 10/18/2016 VIKTORIA CORDOVAP [...] NEOPLASM OF [place] 10/18/2016 VIKTORIA CORDOVA M GROMMET MACHINE OPERATOR Ot R07.81 PLEURODYNIA 10/19/2016 NAE MOSER MD Ot E11.9 TYPE 2 DIABETES MELLITUS WITHOUT COMPLIC 10/19/2016 NAE MOSER MD Ot F17.210 NICOTINE DEPENDENCE, CIGARETTES, UNCOMPL 10/19/2016 NAE MOSER MD Ot K21.9 GASTRO-ESOPHAGEAL REFLUX DISEASE WITHOUT 10/19/2016 NAE MOSER MD Ot R10.13 EPIGASTRIC PAIN 10/19/2016 NAE MOSER MD Ot Z79.4 ASSISTED (CURRENT) USE OF INSULIN 10/20/2016 AMADO DAVIS DO S Ot E11.65 TYPE 2 DIABETES MELLITUS WITH HYPERGLYCE 10/20/2016 AMADO DAVIS DO S Ot I21.4 NON-ST ELEVATION (NSTEMI) MYOCARDIAL INF 10/20/2016 AMADO DAVIS DO S Ot K21.9 GASTRO-ESOPHAGEAL REFLUX DISEASE WITHOUT 10/20/2016 AMADO DAVIS DO S Ot Z79.4 SOIL CHECKER (CURRENT) USE OF INSULIN 10/20/2016 ORENDER DO, AMADO S Ot Z87.891 PERSONAL HISTORY OF NICOTINE DEPENDENCE 10/20/2016 ORENDER DO, AMADO S Ot Z91.19 PATIENT'S NONCOMPLIANCE W [facility] 11/20/2016 VIKTORIA CORDOVA Ot R07.81 PLEURODYNIA 11/22/2016 ORENDER DO, AMADO S Ot E11.9 TYPE 2 DIABETES MELLITUS WITHOUT COMPLIC 11/22/2016 ORENDER DO, AMADO S Ot I25.110 ATHSCL HEART DISEASE OF [place] ART W 11/22/2016 ORENDER DO, AMADO S Ot I25.2 OLD MYOCARDIAL INFARCTION 11/22/2016 ORENDER DO, AMADO S Ot Z79.4 ASSISTED (CURRENT) USE OF INSULIN 11/22/2016 ORENDER DO, AMADO S Ot Z79.899 OTHER SOIL CHECKER (CURRENT) DRUG THERAPY 11/22/2016 ORENDER DO, AMADO S Ot Z87.891 PERSONAL HISTORY OF NICOTINE DEPENDENCE 11/22/2016 ORENDER DO, AMADO S Ot Z95.5 PRESENCE OF CORONARY ANGIOPLASTY IMPLANT 11/28/2016 ORENDER DO, AMADO S Ot E11.9 TYPE 2 DIABETES MELLITUS WITHOUT COMPLIC 11/28/2016 ORENDER DO, AMADO S Ot I25.110 ATHSCL HEART DISEASE OF [place] ART W 11/28/2016 ORENDER DO, AMADO S Ot I25.2 OLD MYOCARDIAL INFARCTION 11/28/2016 ORENDER DO, AMADO S Ot Z79.4 SOIL CHECKER (CURRENT) USE OF INSULIN 11/28/2016 ORENDER DO, AMADO S Ot Z79.899 OTHER SOIL CHECKER (CURRENT) DRUG THERAPY 11/28/2016 ORENDER DO, AMADO S Ot Z87.891 PERSONAL HISTORY OF NICOTINE DEPENDENCE 11/28/2016 ORENDER DO, AMADO S Ot Z95.5 PRESENCE OF CORONARY ANGIOPLASTY IMPLANT 12/01/2016 ORENDER DO, AMADO S Ot E11.9 TYPE 2 DIABETES MELLITUS WITHOUT COMPLIC 12/01/2016 ORENDER DO, AMADO S Ot I25.110 ATHSCL HEART DISEASE OF [place] ART W 12/01/2016 ORENDER DO, AMADO S Ot I25.2 OLD MYOCARDIAL INFARCTION 12/01/2016 ASTERNDNATY YU, AMADO S Ot Z79.4 SOIL CHECKER (CURRENT) USE OF INSULIN 12/01/2016 ASTERNDNATY DO, AMADO S Ot Z79.899 OTHER ASSISTED (CURRENT) DRUG THERAPY 12/01/2016 ASTERNDNATY YU, AMADO S Ot Z87.891 PERSONAL HISTORY OF NICOTINE DEPENDENCE 12/01/2016 ASTERNDNATY YU, AMADO S Ot Z95.5 PRESENCE OF CORONARY ANGIOPLASTY IMPLANT 12/06/2016 ASTERNDNATY YU, AMADO S Ot E11.9 TYPE 2 DIABETES MELLITUS WITHOUT COMPLIC 12/06/2016 ASTERNDER , AMADO S Ot I25.110 ATHSCL HEART DISEASE OF [place] ART W 12/06/2016 SUSAN YU, AMADO S Ot I25.2 OLD MYOCARDIAL INFARCTION 12/06/2016 SUSAN YU, AMADO S Ot Z79.4 ASSISTED (CURRENT) USE OF INSULIN 12/06/2016 SUSAN YU, AMADO S Ot Z79.899 OTHER ASSISTED (CURRENT) DRUG THERAPY 12/06/2016 ASTERNDNATY YU, AMADO S Ot Z87.891 PERSONAL HISTORY OF NICOTINE DEPENDENCE 12/06/2016 SUSAN YU, AMADO S Ot Z95.5 PRESENCE OF CORONARY ANGIOPLASTY IMPLANT 12/10/2016 Ot V76.12 OTH SCREEN MAMMO-MALIGN NEOPLASM OF [place] 12/10/2016 Ot 571.8 CHRONIC LIVER DIS NEC 12/10/2016 Ot 592.0 CALCULUS OF KIDNEY 12/10/2016 Ot 592.1 CALCULUS OF URETER 12/10/2016 Ot 596.9 BLADDER DISORDER NOS 12/10/2016 Ot 789.00 ABDOMINAL PAIN, UNSPECIFIED SITE 12/10/2016 Ot 592.9 URINARY CALCULUS NOS 12/10/2016 ELIO DPTan, COREY Sorensen Ot 726.91 EXOSTOSIS, SITE NOS 12/10/2016 ELIO DPM, COREY Sorensen Ot 735.0 HALLUX VALGUS 12/10/2016 ELIO DPTan, COREY Sorensen Ot 735.4 OTHER HAMMER TOE 12/10/2016 ELIO DPTan, COREY Sorensen Ot V72.84 EXAM PRE-OPERATIVE NOS 12/10/2016 COREY BALLARD DPM Ot V74.8 SCREEN-BACTERIAL DIS NEC 12/10/2016 AMADO DAVIS DO Ot 790.6 ABN BLOOD CHEMISTRY NEC 12/10/2016 AMADO DAVIS DO Ot V16.0 FAMILY HX-GI MALIGNANCY 12/10/2016 AMADO DAVIS DO Ot V76.12 OTH SCREEN MAMMO-MALIGN NEOPLASM OF [place] 12/10/2016 VIKTORIA CORDOVA Ot R07.81 PLEURODYNIA Procedures Code Description Performed By Performed On 300978L DILATION OF 1 COR ART WITH DRUG-ELUT INT 10/19/2016 [id number] MEASURE OF CARDIAC SAMPL PRESSURE, L H 10/19/2016 Q8102LW FLUOROSCOPY OF MULT COR ART USING L OSM 10/19/2016 [id number] FLUOROSCOPY OF LEFT HEART USING LOW OSMO [...] Status Pt. Type Provider Facility Loc./Unit Complaint [id number] 11/20/2016 13:20:00 2016 14:00:00 DIS Outpatient AZAMER DO, AMADO S [facility] CATH CHEST PAIN [id number] 10/18/2016 19:45:00 2015 14:45:00 DIS Inpatient ASTERNDER DO, AMADO S [facility] ICU NON-STEMI [id number] 10/18/2016 08:16:00 2015 12:27:00 DIS Emergency SHANTI RIVERO, NAE Silverman [facility] ER HEARTBURN/CHEST PAIN SOA [id number] 11/02/2014 07:31:00 2014 23:59:59 CLS Outpatient ASTERNDER DO, AMADO S [facility] RAD SCREENING [id number] 09/22/2014 09:43:00 2013 23:59:59 CLS Outpatient ASTERNDER DO, AMADO S [facility] RAD INCREASED LFT'S,FAMILY HX LIVER CA [id number] 08/13/2014 06:00:00 2013 10:30:00 DIS Outpatient COREY BALLARD DPM [facility] SDC RIGHT TANVIRERTOE [id number] 08/09/2014 08:44:00 2013 23:59:59 CLS Outpatient COREY BALLARD DPM [facility] PREOP RIGHT HAMMERTOE [id number] 03/21/2014 21:47:00 2013 22:45:00 DIS Emergency REINA RIVERO, ISAIAS Wei [facility] ER BUG BITE [id number] 04/30/2016 09:07:00 ACT Outpatient VIKTORIA CORDOVA [facility] RAD RT RIB PAIN [id number] 02/20/2013 00:00:00 Document Registration [id number] 11/21/2012 15:52:00 Document Registration [id number] 10/08/2012 10:40:00 Document Registration [id number] 10/07/2012 07:55:00 Document Registration [id number] 08/21/2012 14:56:00 Document Registration [id number] 06/29/2012 22:30:00 Document Registration
--- NOTE | 2016-12-28 10:13 | Diagnostic Imaging Report ---
PROCEDURE: CT urinary tract, rule out kidney stone. TECHNIQUE: Multiple contiguous axial images were obtained through the abdomen and pelvis without the use of intravenous contrast. INDICATION: Left flank pain. Hematuria. COMPARISON: 10/07/2012 FINDINGS: Included views of the lung bases are clear. CT abdomen: Small 2-3 mm calculus is identified within the proximal left ureter (image 63, series 2). There is no appreciable proximal hydroureteronephrosis. No other renal or ureter calculi are seen on either side. No focal renal lesions are seen on this noncontrast exam. Liver is diffusely hypodense consistent with background of hepatic steatosis. Otherwise, the liver, spleen, pancreas, and adrenal glands have an unremarkable noncontrast CT appearance. Small bowel loops are nondistended. Normal appendix is identified. There is no loculated fluid collection, free fluid or free air within the abdomen. No abnormal mesenteric or retroperitoneal adenopathy is seen. There is mild to moderate calcified aortic and arterial atherosclerosis. Bony structures show no acute abnormalities. CT pelvis: Urinary bladder is unopacified. No calculi are seen within the urinary bladder. There is no loculated fluid collection, free fluid or free air within the pelvis. No abnormal lymph nodes are seen. Bony structures show no acute abnormalities. IMPRESSION: 1. Single 2-3 mm calculus within the proximal left ureter. No appreciable proximal hydronephrosis. 2. Hepatic steatosis. Dictated by: Dictated on workstation # [id number]
== END ==
LOC: RAD 09:41
PROVIDERS: ATTEND Nurse Practitioner
DX: R31.9 Hematuria, unspecified (principal); N20.1 Calculus of ureter; K76.0 Fatty (change of) liver, not elsewhere classified
CPT/HCPCS: 74176

== ENCOUNTER → 2017-05-14 | Outpatient (CLI) | payer OTHER ==
[~2017-05-14] MED LIST changes: -METO-270 PO; +METO-387 PO
--- NOTE | 2017-05-14 11:39 | Diagnostic Imaging Report ---
INDICATION: Rib injury with pain. AP and oblique views of the right ribs are obtained. FINDINGS: No pneumothorax or pleural reaction is identified. No acute fracture or dislocation is identified. No abnormal lytic or sclerotic focus is seen, and there is no radiopaque foreign body. IMPRESSION: No acute abnormality. Dictated by: Dictated on workstation # [id number]
== END ==
LOC: RAD 09:49
PROVIDERS: ATTEND Family Medicine
DX: R07.81 Pleurodynia (principal)
CPT/HCPCS: 71100

== ENCOUNTER → 2018-02-20 | Outpatient (CLI) | payer OTHER | LOC: CARD 11:52 | PROVIDERS: ATTEND Nurse Practitioner Family | DX: I49.9 Cardiac arrhythmia, unspecified (principal); R00.2 Palpitations | CPT/HCPCS: 93005 ==

== ENCOUNTER 2018-02-24 06:37 | Outpatient (RCR) | payer OTHER ==
[~2018-02-24 06:37] MED LIST changes: -IOHEXOL 350 MG/ML 100 ML (OMNIPAQUE 350) VIAL IV ONE; -NS 250 ML (IVPB) BAG IV ONE
== END 2018-05-25 | disposition home or self-care (01) ==
LOC: CARD 06:37
PROVIDERS: ATTEND Internal Medicine Interventional Cardiology
DX: I49.3 Ventricular premature depolarization (principal); I25.10 Atherosclerotic heart disease of native coronary artery without angina pectoris; R07.89 Other chest pain; I51.9 Heart disease, unspecified; E78.5 Hyperlipidemia, unspecified; Z87.891 Personal history of nicotine dependence
CPT/HCPCS: 93225; 93226

== ENCOUNTER → 2018-02-24 | Outpatient (CLI) | payer OTHER ==
[~2018-02-24] MED LIST changes: +IOHEXOL 350 MG/ML 100 ML (OMNIPAQUE 350) VIAL IV ONE; +NS 250 ML (IVPB) BAG IV ONE
[2018-02-24 07:10] LABS: BUN/CREATININE RATIO 17; CREATININE SERUM 0.69 MG/DL (0.60-1.30); GFR ESTIMATED > 60
--- NOTE | 2018-02-24 12:44 | Diagnostic Imaging Report ---
PROCEDURE: CT chest with contrast only. TECHNIQUE: Multiple contiguous axial images were obtained through the chest after administration of intravenous contrast. INDICATION: Carotid artery disease. FINDINGS: There are no prior CT chest studies available for comparison. The plain film examination of the chest performed on 11/20/2016 failed to show any sign of an acute cardiopulmonary abnormality. On this exam, the heart is stable in size and within normal limits. There may be a few sparse coronary artery calcifications involving the LAD. The aorta is not abnormally dilated and there is no sign of dissection. There is no defect within the pulmonary arteries to indicate a pulmonary embolus. The lungs are generally clear. There is no sign of failure or pneumonia. There is a small amount of scar formation in both the lingula and the right middle lobe. There is no parenchymal lung mass visualized. There is no mediastinal or hilar adenopathy. The thyroid gland where visualized is unremarkable. There is no obvious breast mass. According to our records, the patient has not had a mammogram since 2014. If the patient has had a recent (one year) mammogram elsewhere, then no further imaging would be necessary. However if the patient has not had a recent mammogram, then mammography would be recommended. The images through the upper abdomen fail to show any sign of an acute abnormality. The liver is of lower density than usually seen. This does suggest fatty metamorphosis. The bone windows show no sign of a fracture or of a destructive lesion. IMPRESSION: 1. There is no evidence for an acute cardiopulmonary abnormality. There are mild chronic changes involving the right middle lobe and lingula. 2. The heart is not enlarged but there are sparse coronary artery calcifications evident. 3. There is no obvious breast mass. Recommendations, as above. 4. The appearance of the liver does suggest fatty metamorphosis. Dictated by: Dictated on workstation # [id number]
== END ==
LOC: RAD 06:35
PROVIDERS: ATTEND Internal Medicine Interventional Cardiology
DX: I77.1 Stricture of artery (principal)
CPT/HCPCS: 36415; 71260; 82565; 84520